=== PATIENT | female | born 1945 | race Caucasian/White ===

== ENCOUNTER 2022-04-08 16:58 | Emergency (ER) | payer MEDICARE, OTHER ==
[2022-04-08] MEDS ORDERED: PROTONIX 40 MG IV IV ONE (17:16)
[2022-04-08] MEDS ORDERED: TORAdol 30 mg Injection IV ONE (17:16)
[2022-04-08] MEDS ORDERED: Zofran 4 MG/2 ML VIAL IV ONE (17:16)
[2022-04-08] MEDS ORDERED: Sodium Chloride 0.9% 1000 ML 1,000 ML IV STA (17:16)
[2022-04-08] MEDS ORDERED: NORCO 5/325 MG PO ONE (17:38)
[2022-04-08] MEDS ORDERED: NORCO 5/325 MG ONE (17:42)
[2022-04-08] MEDS ORDERED: Lidoderm Patch 5% TOP ONE (17:57)
--- NOTE | 2022-04-08 17:57 | ERPHSYRPT ---
- History of Present Illness Source: patient Exam Limitations: no limitations Patient Subjective Stated Complaint: Lower back pain Triage Nursing Assessment: Patient brougth back to ED per w/c and transferred self to bed. Patient A+O X3. Patient's skin pink, warm and dry. Patient has a back injury that Dr. Mallory is following patient. Patient had recent MRI on 03/18/2022 and has been referred to [facility]. Patient is out of pain medication and called Dr. Mallory's office regarding her pain and was told to come to ED for pain relief. Patient complains of lower back pain 06/29. Timing/Duration: today Severity: moderate Modifying Factors: Improves With: medication, other Associated Symptoms: denies symptoms Hx Influenza Vaccination/Date Given: Yes Hx Pneumococcal Vaccination/Date Given: Yes Immunizations Up to Date: Yes <ANDREY HAYDEN - Last Filed: 04/08/22 18:39> <GUY AVERY - Last Filed: 04/08/22 19:29> - History of Present Illness Time Seen by Provider: 04/08/22 17:00 Physician History: Patient here with acute on chronic pain. Patient recent MRI 2 weeks ago. Patient states that she had a fall last week. She has not been evaluated for this fall yet. She was taking home tramadol. She now has pain over her lower back. I was able to review the MRI in our system. No other problems peeing, pooping, signs or symptoms of saddle anesthesia. 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 - Vaccination Dates Date of 2cond Vaccination (if applicable): na <ANDREY HAYDEN - Last Filed: 04/08/22 18:39> - Review of Systems Constitutional: No Fever, No Chills Eyes: No Symptoms Ears, Nose, & Throat: No Symptoms Respiratory: No Cough, No Dyspnea Cardiac: No Chest Pain, No Edema, No Syncope Abdominal/Gastrointestinal: No Abdominal Pain, No Nausea, No Vomiting, No Diarrhea Genitourinary Symptoms: No Dysuria Musculoskeletal: Back Pain, No Neck Pain Skin: No Rash Neurological: No Dizziness, No Focal Weakness, No Sensory Changes Psychological: No Symptoms Endocrine: No Symptoms All Other Systems: Reviewed and Negative <ANDREY HAYDEN - Last Filed: 04/08/22 18:39> - Past Medical History Neurological History: Stroke Cardiac History: Coronary Artery Disease, High Cholesterol, Hypertension Respiratory History: No Pertinent History Endocrine Medical History: No Pertinent History Musculoskeletal History: Arthritis Other Medical History: R ankle fx x3. 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 Carotid - Social History Smoking Status: Current every day smoker How long have you smoked: years Exposure to second hand smoke: No Drug Use: none Patient Lives Alone: Yes <ANDREY HAYDEN - Last Filed: 04/08/22 18:39> - Physical Exam General Appearance: no apparent distress, alert Eye Exam: PERRL/EOMI, eyes nml inspection Ears, Nose, Throat Exam: normal ENT inspection, TMs normal, pharynx normal, moist mucous membranes Neck Exam: normal inspection, non-tender, supple, full range of motion Respiratory Exam: normal breath sounds, lungs clear, No respiratory distress Cardiovascular Exam: regular rate/rhythm, normal heart sounds, normal peripheral pulses Gastrointestinal/Abdomen Exam: soft, normal bowel sounds, No tenderness, No mass Back Exam: normal inspection, normal range of motion, No CVA tenderness, No vertebral tenderness Extremity Exam: normal inspection, normal range of motion, pelvis stable Neurologic Exam: alert, oriented x 3, cooperative, normal mood/affect, nml cerebellar function, nml station & gait, sensation nml, No motor deficits Skin Exam: normal color, warm, dry, No rash Lymphatic Exam: No adenopathy SpO2 Interpretation: normal SpO2: 96 <ANDREY HAYDEN - Last Filed: 04/08/22 18:39> - Nursing Vital Signs Nursing Vital Signs: Initial Vital Signs Temperature 98.4 F 04/08/22 17:16 Pulse Rate 99 H 04/08/22 17:16 Respiratory Rate 18 04/08/22 17:16 Blood Pressure 177/99 04/08/22 17:16 O2 Sat by Pulse Oximetry 96 04/08/22 17:16 Pain Scale Pain Intensity 0 - Physical Exam Comments: 04/08/22 17:56 Midline L-spine tenderness. No T-spine tenderness no C-spine tenderness. No step-offs no deformities. Normal neurological exam. No saddle anesthesia on physical exam. Motor: There is no pronator drift of out-stretched arms. Muscle bulk and tone are normal. Strength is full bilaterally. Reflexes: Reflexes are 2+ and symmetric at the biceps, triceps, knees, and ankles. Plantar responses are flexor. Sensory: Light touch sense are intact in bilateral upper and lower extremities. There is no sign of neglect. Coordination: Rapid alternating movements are intact. There is no dysmetria on [id number] and [id number]. There are no abnormal or extraneous movements. Romberg is absent. Gait/Stance: Posture is normal. (ANDREY HAYDEN) - Course Nursing assessment & vital signs reviewed: Yes <ANDREY HAYDEN - Last Filed: 04/08/22 18:39> - CT Exams Lumbar Spine CT Interpretation: Negative, Tele-radiologist Report (osteopenia, L4-S1 degenerative disc disease, minimal grade 1 L4 anterolisthesis, and T11/T12 Schmorl nodes similar in appearance to recent MRI lumbar spine; incidental AAA with aortobiliac stent grafts and incompletely visualized right lung base calcified pleural plaquing; remain CT lumbar negative) <GUY AVERY - Last Filed: 04/08/22 19:29> Ordered Tests: Active Orders 24 hr Category Date Time Status NPO (ED) STAT Care 04/08/22 17:16 Completed LUMBAR SPINE W/O [CT] Stat Exams 04/08/22 17:41 Completed Medication Summary Discontinued Medications Generic Name Dose Route Start Last Admin Trade Name Freq PRN Reason Stop Dose Admin Hydrocodone Bitart/Acetaminophen 1 tab 04/08/22 17:38 04/08/22 17:42 Hydrocodone/Apap 5/325 1 Tab Tablet PO 04/08/22 17:39 1 tab STAT ONE Administration Hydrocodone Bitart/Acetaminophen Confirm 04/08/22 17:42 Hydrocodone/Apap 5/325 1 Tab Tablet Administered 04/08/22 17:43 Dose 1 tab .ROUTE .STK-MED ONE Sodium Chloride 1,000 mls @ 999 mls/hr 04/08/22 17:16 04/08/22 17:41 Sodium Chloride 0.9% 1000 Ml IV 04/08/22 18:16 Not Given .Q1H1M STA Ketorolac Tromethamine 30 mg 04/08/22 17:16 04/08/22 17:41 Ketorolac Tromethamine 30 Mg/Ml Inj IV 04/08/22 17:17 Not Given STAT ONE Lidocaine 1 patch 04/08/22 17:57 04/08/22 18:22 Lidocaine Hcl 1 Patch Patch TOP 04/08/22 17:58 1 patch ONCE ONE Administration Ondansetron HCl 4 mg 04/08/22 17:16 04/08/22 17:41 Ondansetron Hcl 4 Mg/2 Ml Vial IV 04/08/22 17:17 Not Given STAT ONE Pantoprazole Sodium 40 mg 04/08/22 17:16 04/08/22 17:41 Pantoprazole 40 Mg Vial IV 04/08/22 17:17 Not Given STAT ONE - Progress Progress: improved <ANDREY HAYDEN - Last Filed: 04/08/22 18:39> - Progress Counseled pt/family regarding: diagnosis, need for follow-up, rad results <GUY AVERY - Last Filed: 04/08/22 19:29> - Progress Progress Note: 04/08/22 17:56 Patient had a fall with some midline back pain. We will obtain a CT scan of her L-spine. I was able to review the MRI from 03/18/2022. Plan to give oral Canmer here. 04/08/22 18:41 CT still pending at this point in time. Plan for transfer to Dr. Avery. Patient is feeling improved. Pain medication to go home with. Patient may return here sooner for any new or changing symptoms. Otherwise Dr. Avery follow-up on imaging and most likely home. (ANDREY HAYDEN) 04/08/22 19:[address] scan for any acute fractures or acute abnormalities and reviewed the patient the results. Patient has no focal neurologic deficits in the lower extremities bilaterally (GUY AVERY) - Departure Critical Care Time: No <ANDREY HAYDEN - Last Filed: 04/08/22 18:39> <GUY AVERY - Last Filed: 04/08/22 19:29> - Departure Clinical Impression: Back pain, Fall Condition: Stable Referrals: JOHN BRITT [Primary Care Provider] - Follow up/PCP as directed Prescriptions: Cyclobenzaprine HCl 10 mg [Flexeril 10 MG] 10 mg PO TID #12 tablet Lidocaine [Lidocaine Pain Relief] 1 each TP DAILY 7 Days #7 patch
--- NOTE | 2022-04-08 19:11 | XRAY ---
Indication: Low back pain radiating right hip following fall 1 week ago. Multiple contiguous axial images obtained through the lumbar spine. Sagittal and coronal reformatted images obtained. Comparison: None. There is a MRI lumbar spine March 18, 2022. Osseous structures demineralized. Axial images demonstrates mild broad-based disc bulge at L4-S1 levels and L5-S1 degenerative vacuum disc phenomena. No large disc herniation or spinal canal stenosis. Facets are symmetric with moderate L4-L5 degenerative facet hypertrophy. Sagittal and coronal reformatted images demonstrates normal lumbar lordosis with 6 mm anterolisthesis of L4 on L5 and L5-S1 disc space loss. Superior endplate T11/T12 demonstrates small Schmorl node. No acute compression fracture. Visualized noncontrasted soft tissues demonstrates distal AAA with aortobiiliac stent grafts and incompletely visualized right lung base calcified pleural plaquing. Impression: 1. Osteopenia, L4-S1 degenerative disc disease, minimal grade 1 L4 anterolisthesis, and T11/T12 Schmorl nodes similar in appearance to recent MRI lumbar spine. 2. Incidental distal AAA with aortobiiliac stent grafts and incompletely visualized right lung base calcified pleural plaquing. 3. Remaining CT lumbar spine without contrast exam is negative.
[2022-04-08 19:14] VITALS: O2SAT 95
[2022-04-08 19:47] VITALS: BP 119/79; PULSE 84
== END 2022-04-08 19:47 | disposition home or self-care (01) ==
LOC: ED 16:58
DX: M54.50 Low back pain, unspecified (principal); W19.XXXA Unspecified fall, initial encounter; E78.5 Hyperlipidemia, unspecified; I10 Essential (primary) hypertension; Z72.0 Tobacco use; Z79.891 Long term (current) use of opiate analgesic
CPT/HCPCS: 72131; 99283; A9270-GY

== ENCOUNTER 2023-05-05 17:47 | Emergency (ER) | payer MEDICARE, OTHER ==
[2023-05-05 18:45] VITALS: TEMP 98; O2SAT 97
[2023-05-05 20:35] VITALS: RESP 18
--- NOTE | 2023-05-05 20:35 | ERPHSYRPT ---
- History of Present Illness Time Seen by Provider: 05/05/23 20:00 Source: patient, family Exam Limitations: no limitations Patient Subjective Stated Complaint: Patient c/o pain and swelling to right thumb. She states it started about 2 weeks ago. She went to the [facility] on Monday and was told it was gout and started on indomethacin. The pain and swelling have continued to increase. Triage Nursing Assessment: Patient ambulated back to ER. She is alert and oriented. NO SOB. Patient right thumb is red, warm, swollen, tight. Area is tender to touch. Physician History: This is a 77-year-old white female patient has a history of hyperlipidemia, hypertension and is a taking Plavix. Patient was diagnosed with gout in her right thumb. This was diagnosed on 05/01/2023 through the urgent care clinic. Patient was found to have an elevated uric acid level. I reviewed that laboratory data. In addition I reviewed the x-ray of the right hand that was performed on 05/01/2023. There are degenerative changes present without evidence of acute fracture or dislocation. Since that diagnosis, the patient has been on indomethacin without improvement. In fact there is increased swelling redness and tenderness. Occurred: other (Present for 2 weeks) Method of Injury: other Quality: constant (Injury), aching Severity of Pain-Max: mild (To moderate) Severity of Pain-Current: mild (To moderate) Extremities Pain Location: thumb: right Modifying Factors: Improves With: movement Associated Symptoms: none, No fever Allergies/Adverse Reactions: amlodipine Allergy (Mild, Verified 05/05/23 18:27) Home Medications: Aspirin 81 gm Chew [Baby Aspirin 81 mg Chew] 1 tab PO DAILY 05/05/23 [History] Celecoxib 100 mg [celeBREX 100 MG] 1 cap PO BID 05/05/23 [History] Clopidogrel Bisulfate [PLAVIX Tablet] 1 tab PO DAILY 05/05/23 [History] Famotidine 20 mg [Pepcid 20 MG] 1 tab PO DAILY 05/05/23 [History] Indomethacin 25 mg [Indocin 25 MG] 50 mg PO TID 05/05/23 [History] Metoprolol Succinate 50 mg [Toprol Xl 50 MG] 0.5 tab PO DAILY 05/05/23 [History] Simvastatin [Zocor] 1 tab PO HS 05/05/23 [History] Spironolactone 25 mg [Aldactone 25 MG] 1 tab PO DAILY 05/05/23 [History] Hx Tetanus, Diphtheria Vaccination/Date Given: Yes Hx Influenza Vaccination/Date Given: Yes Hx Pneumococcal Vaccination/Date Given: Yes Immunizations Up to Date: Yes Travel Risk - International Travel Have you traveled outside of the country in past 3 weeks: No - Coronavirus Screening Are you exhibiting any of the following symptoms?: No Close contact with a COVID-19 positive Pt in past 14-21 Days: No - Vaccine Status Have you recieved a Covid-19 vaccination: Yes 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 - Vaccination Dates Date of 2cond Vaccination (if applicable): na - Review of Systems Constitutional: No Symptoms Eyes: No Symptoms Ears, Nose, & Throat: No Symptoms Respiratory: No Symptoms Cardiac: No Symptoms Abdominal/Gastrointestinal: No Symptoms Genitourinary Symptoms: No Symptoms Musculoskeletal: Other (Right thumb swelling and tenderness) Skin: Cellulitis (Right thumb) Neurological: No Symptoms Psychological: No Symptoms Endocrine: No Symptoms Hematologic/Lymphatic: No Symptoms Immunological/Allergic: No Symptoms All Other Systems: Reviewed and Negative - Past Medical History Pertinent Past Medical History: Yes Neurological History: Stroke ENT History: Cataracts Cardiac History: High Cholesterol, Hypertension Respiratory History: Other Endocrine Medical History: No Pertinent History Musculoskeletal History: Osteoarthritis GI Medical History: GERD Other Medical History: SOB, SMOKER, OPEN HEART SURGERY. - Past Surgical History Past Surgical History: Yes Neuro Surgical History: No Pertinent History Cardiac: CABG, Cardiac Catheterization, Other Respiratory: No Pertinent History Gastrointestinal: No Pertinent History Genitourinary: No Pertinent History Musculoskeletal: No Pertinent History Female Surgical History: No Pertinent History Other Surgical History: Triple A repair. Carotid - Social History Smoking Status: Current every day smoker How long have you smoked: years Exposure to second hand smoke: No Drug Use: none Patient Lives Alone: Yes - Nursing Vital Signs Nursing Vital Signs: Initial Vital Signs Temperature 98 F 05/05/23 18:32 Pulse Rate 86 05/05/23 18:32 Respiratory Rate 17 05/05/23 18:32 Blood Pressure 168/81 05/05/23 18:32 O2 Sat by Pulse Oximetry 97 05/05/23 18:32 Pain Scale Pain Intensity 10 - Physical Exam General Appearance: no apparent distress, alert, anxiety, obese Eyes, Ears, Nose, Throat Exam: normal ENT inspection, moist mucous membranes Neck Exam: normal inspection, non-tender, supple, full range of motion Cardiovascular/Respiratory Exam: chest non-tender, no respiratory distress Abdominal Exam: non-tender Back Exam: normal inspection, normal range of motion, No CVA tenderness, No vertebral tenderness Shoulder Exam: normal inspection, non-tender, no evidence of injury, normal ROM Elbow/Forearm Exam: normal inspection, non-tender, no evidence of injury, normal ROM Wrist Exam: normal inspection, non-tender, no evidence of injury, normal ROM Hand Exam: infection (Right thumb. Question ballotable abscess right thumb), soft tissue tenderness, swelling (Right thumb thumb) Neuro/Tendon Exam: normal sensation, normal motor functions, normal tendon functions, responds to pain, no evidence tendon injury Mental Status Exam: alert, oriented x 3, cooperative Skin Exam: other (See above) SpO2 Interpretation: normal SpO2: 97 O2 Delivery: Room Air Procedures - Incision and Drainage Time of Procedure: 20:45 Site: Right thumb Anesthesia: 1% Lidocaine cc's of anesthesia: 1 Blade Size: 11 I & D Procedure: betadine prep Results: moderate amount pus Progress: Patient tolerated procedure well. - Course Nursing assessment & vital signs reviewed: Yes Ordered Tests: Active Orders 24 hr Category Date Time Status CULTURE,WOUND Stat Lab 05/05/23 21:04 Ordered Medication Summary Discontinued Medications Generic Name Dose Route Start Last Admin Trade Name Ari PRN Reason Stop Dose Admin Ceftriaxone Sodium 1,000 mg 05/05/23 21:04 Ceftriaxone Sodium 1000 Mg Inj Vial IM 05/05/23 21:05 STAT ONE Oxycodone/Acetaminophen 2 tab 05/05/23 20:38 05/05/23 21:04 Oxycodone Hcl/Apap 5 Mg/325 Mg Tablet PO 05/05/23 20:39 2 tab STAT STA Administration Oxycodone/Acetaminophen Confirm 05/05/23 20:51 Oxycodone Hcl/Apap 5 Mg/325 Mg Tablet Administered 05/05/23 20:52 Dose 2 tab .ROUTE .STK-MED ONE Trimethoprim/Sulfamethoxazole 1 tab 05/05/23 21:04 Smz/Tmp Ds Tablet 1 Tablet PO 05/05/23 21:05 STAT ONE - Progress Progress: improved, pain not gone completely Progress Note: 05/05/23 20:35 Patient's medical issue is 1 of low complexity. Level complexity in the workup performed is based on review of the patient's past medical history, review the patient's medication list, review of patient drug allergy list, history of present illness and physical findings on examination. The workup in this patient includes prepping the site with incision and drainage of the abscess that is present and fluid will be sent for culture and sensitivity. We will then inject the patient with intramuscular Rocephin and provide her with a oral dose of Bactrim DS. We will then have the patient return in 24 hours for reassessment. Counseled pt/family regarding: diagnosis, need for follow-up Medical Desision Making - Independent Historian Additional History obtained from: Family - Diagnostic Testing Diagnostic test were ordered, analyzed, and reviewed by me: No - Risk of complications The pt has a mod risk of morbidity or mortality based on: Need for prescription drug management - Departure Departure Disposition: Home Clinical Impression: Abscess of right thumb Condition: Stable Critical Care Time: No Referrals: JOHN BRITT [Primary Care Provider] - Follow up/PCP as directed Additional Instructions: Keep the current bandage on until tomorrow morning. May then remove the bandage and soak/wash in warm soapy water or Epsom salts twice a day. Replace the dressing with a new 1 after each washing and soaking. Take your medication as prescribed. Return to the emergency department approximately noon tomorrow, 05/06/2023 for reevaluation. Prescriptions: Oxycodone HCl/Acetaminophen [Percocet 5-325 mg Tablet] 1 each PO Q8H PRN PRN #6 tablet MDD 3 PRN Reason: Moderate To Severe Pain Smz/Tmp Ds Tablet [Bactrim Ds Tablet] 1 udtab PO BID #14 tablet
[2023-05-05] MEDS ORDERED: PERCOCET TABLET 5/325MG ONE (20:51)
[2023-05-05] MEDS: PERCOCET TABLET 5/325MG PO STA (21:04)
[2023-05-05] MEDS ORDERED: BACTRIM DS TABLET PO ONE (21:14)
[2023-05-05] MEDS ORDERED: Rocephin 1000 MG INJ ONE (21:14)
[2023-05-05] MEDS ORDERED: XYLOCAINE 1% HCL 20 ML MDV ONE (21:18)
[2023-05-05] MEDS: Rocephin 1000 MG INJ IM ONE (21:23)
[2023-05-05] MEDS: BACTRIM DS TABLET PO ONE (21:24)
[2023-05-05 21:40] VITALS: BP 142/67; PULSE 80
== END 2023-05-05 21:48 | disposition home or self-care (01) ==
LOC: ED 17:47
DX: L02.511 Cutaneous abscess of right hand (principal); M79.644 Pain in right finger(s); E78.5 Hyperlipidemia, unspecified; I10 Essential (primary) hypertension; Z79.891 Long term (current) use of opiate analgesic; Z79.02 Long term (current) use of antithrombotics/antiplatelets; Z79.899 Other long term (current) drug therapy; Z72.0 Tobacco use
CPT/HCPCS: 26010; 87070; 96372; 99283; J0696; A9270-GY

== ENCOUNTER 2023-05-06 10:58 | Observation (INO) | payer MEDICARE, OTHER ==
--- NOTE | 2023-05-06 11:38 | ERPHSYRPT ---
- History of Present Illness Time Seen by Provider: 05/06/23 11:25 Source: family (Patient here for evaluation of altered mental status after taking Percocet her family states that she did not respond to the phone call and when her son arrived at the house she was altered, he said that she was alert to person but not to place or time and could not recall certain events) Exam Limitations: no limitations Patient Subjective Stated Complaint: pt here for recheck on finger that was I/D last nigth and a confusion that started sometime today, family was unable to get pt to answer phone and when they checked on her she was not acting her normal Triage Nursing Assessment: pt alert, does not know why she is here and does not know date but does know her BD and where she is, has redness and swelling to right thumb, dryed drainage on dressing Timing/Duration: today, yesterday Severity: mild Modifying Factors: Improves With: nothing Allergies/Adverse Reactions: amlodipine Allergy (Mild, Verified 05/05/23 18:27) Home Medications: Aspirin 81 gm Chew [Baby Aspirin 81 mg Chew] 1 tab PO DAILY 05/05/23 [History] Celecoxib 100 mg [celeBREX 100 MG] 1 cap PO BID 05/05/23 [History] Clopidogrel Bisulfate [PLAVIX Tablet] 1 tab PO DAILY 05/05/23 [History] Famotidine 20 mg [Pepcid 20 MG] 1 tab PO DAILY 05/05/23 [History] Indomethacin 25 mg [Indocin 25 MG] 50 mg PO TID 05/05/23 [History] Metoprolol Succinate 50 mg [Toprol Xl 50 MG] 0.5 tab PO DAILY 05/05/23 [History] Simvastatin [Zocor] 1 tab PO HS 05/05/23 [History] Spironolactone 25 mg [Aldactone 25 MG] 1 tab PO DAILY 05/05/23 [History] Hx Tetanus, Diphtheria Vaccination/Date Given: Yes Hx Influenza Vaccination/Date Given: Yes Hx Pneumococcal Vaccination/Date Given: Yes Immunizations Up to Date: Yes Travel Risk - International Travel Have you traveled outside of the country in past 3 weeks: No - Coronavirus Screening Are you exhibiting any of the following symptoms?: No Close contact with a COVID-19 positive Pt in past 14-21 Days: No - Vaccine Status Have you recieved a Covid-19 vaccination: Yes [employer]: Moderna - Vaccination Dates Date of 2cond Vaccination (if applicable): na - Review of Systems Eyes: No Symptoms Ears, Nose, & Throat: No Symptoms Respiratory: No Symptoms Cardiac: No Symptoms Abdominal/Gastrointestinal: No Symptoms Genitourinary Symptoms: Frequency Musculoskeletal: No Symptoms Skin: No Symptoms Neurological: Other (Altered mental status per family) Endocrine: No Symptoms Hematologic/Lymphatic: No Symptoms Immunological/Allergic: No Symptoms - Past Medical History Pertinent Past Medical History: Yes Neurological History: No Pertinent History, Stroke ENT History: Cataracts Cardiac History: High Cholesterol, Hypertension Respiratory History: Other Endocrine Medical History: No Pertinent History Musculoskeletal History: Osteoarthritis GI Medical History: GERD Other Medical History: SOB, SMOKER, OPEN HEART SURGERY. - Past Surgical History Past Surgical History: Yes Neuro Surgical History: No Pertinent History Cardiac: CABG, Cardiac Catheterization, Other Respiratory: No Pertinent History Gastrointestinal: No Pertinent History Genitourinary: No Pertinent History Musculoskeletal: No Pertinent History Female Surgical History: No Pertinent History Other Surgical History: Triple A repair. Carotid - Social History Smoking Status: Current every day smoker How long have you smoked: years Exposure to second hand smoke: No Drug Use: none Patient Lives Alone: Yes - Nursing Vital Signs Nursing Vital Signs: Initial Vital Signs Temperature 98.2 F 05/06/23 11:07 Pulse Rate 107 H 05/06/23 11:07 Respiratory Rate 16 05/06/23 11:07 Blood Pressure 148/72 05/06/23 11:07 O2 Sat by Pulse Oximetry 97 05/06/23 11:07 Pain Scale Pain Intensity 0 - Physical Exam General Appearance: no apparent distress Eye Exam: PERRL/EOMI Ears, Nose, Throat Exam: normal ENT inspection Neck Exam: normal inspection Respiratory Exam: normal breath sounds Cardiovascular Exam: regular rate/rhythm Gastrointestinal/Abdomen Exam: soft, normal bowel sounds Skin Exam: normal color SpO2: 97 - CT Exams Head CT Interpretation: Tele-radiologist Report, Other Ordered Tests: Active Orders 24 hr Category Date Time Status IV Insertion STAT Care 05/06/23 11:34 Active cath [Cath for Specimen-Straight] STAT Care 05/06/23 11:35 Active HEAD WITHOUT CONTRAST [CT] Stat Exams 05/06/23 11:27 Completed CBC W DIFF Stat Lab 05/06/23 11:30 Completed CMP Stat Lab 05/06/23 11:30 Completed CULTURE,URINE Stat Lab 05/06/23 11:35 Received UA W/RFX UR CULTURE Stat Lab 05/06/23 11:34 Completed Lab/Rad Data: Laboratory Result Diagrams 05/06/23 11:30 05/06/23 11:30 Laboratory Results 05/06/23 05/06/23 05/06/23 Range/Units 11:34 11:30 11:30 WBC 10.5 (4.0-10.5) x10^3/uL RBC 3.92 L (4.1-5.4) x10^6/uL Hgb 11.9 L (12.0-16.0) g/dL Hct 36.0 (35-47) % MCV 91.8 (78-100) fL MCH 30.4 (26-32) pg MCHC 33.1 (32-36) g/dL RDW 12.6 (11.5-14.0) % Plt Count 308 (150-450) x10^3/uL MPV 9.8 (7.5-11.0) fL Gran % 81.8 H (36.0-66.0) % Immature Gran % (Auto) 0.6 H (0.00-0.4) % Nucleat RBC Rel Count 0.0 (0.00-0.1) % Eos # (Auto) 0.19 (0-0.5) x10^3/uL Immature Gran # (Auto) 0.06 H (0.00-0.03) x10^3u/L Absolute Lymphs (auto) 0.93 L (1.0-4.6) x10^3/uL Absolute Monos (auto) 0.67 (0.0-1.3) x10^3/uL Absolute Nucleated RBC 0.00 (0.00-0.01) x10^3u/L Lymphocytes % 8.9 L (24.0-44.0) % Monocytes % 6.4 (0.0-12.0) % Eosinophils % 1.8 (0.00-5.0) % Basophils % 0.5 (0.0-0.4) % Absolute Granulocytes 8.58 H (1.4-6.9) x10^3/uL Basophils # 0.05 (0-0.4) x10^3/uL Sodium 135 (135-145) mmol/L Potassium 5.3 H (3.5-5.1) mmol/L Chloride 102 (98-107) mmol/L Carbon Dioxide 21 L (22-30) mmol/L Anion Gap 16.9 H (5-15) MEQ/L BUN 24 H (7-17) mg/dL Creatinine 1.67 H (0.52-1.04) mg/dL Estimated GFR 31.0 ML/MIN Glucose 117 H (74-106) mg/dL Calcium 8.7 (8.4-10.2) mg/dL Total Bilirubin 0.50 (0.2-1.3) mg/dL AST 20 (14-36) U/L ALT 10 (0-35) U/L Alkaline Phosphatase 47 (38-126) U/L Serum Total Protein 7.4 (6.3-8.2) g/dL Albumin 4.1 (3.5-5.0) g/dL Urine Color Yellow (Yellow) Urine Appearance Clear (Clear) Urine pH 6.0 (4.6-8.0) Ur Specific [place] 1.015 (1.005-1.030) Urine Protein Negative (Negative) Urine Glucose (UA) Negative (Negative) mg/dL Urine Ketones Negative (Negative) Urine Blood Small A (Negative) Urine Nitrite Negative (Negative) Urine Bilirubin Negative (Negative) Urine Urobilinogen 0.2 (0.2) mg/dL Ur Leukocyte Esterase Small A (Negative) U Hyaline Cast (Auto) NONE SEEN (0-2) /LPF Urine Microscopic RBC 0-2 (0-5) /HPF Urine Microscopic WBC 6-10 A (0-5) /HPF Ur Epithelial Cells Rare (None Seen) /HPF Urine Bacteria Few A (None Seen) /HPF Urine Culture Reflexed ORDERED SEPARATELY (NO) - Progress Progress: improved Progress Note: 05/06/23 13:55 IMPRESSION: 1. No acute intracerebral or extra axial hematoma. 2. Confluent hypoattenuation seen bilaterally in periventricular white matter and centrum semiovale representing microvascular ischemic changes, however the the possibility of acute ischemic infarction can not be entirely excluded, would recommend MRI brain including DWI/ADC . 3. An area of encephalomalacia seen in left parieto occipital region likely due to prior ischemic event. 4. Age-appropriate brain involutional changes 5. No obvious space occupying lesions seen. Patient and her family was updated with the results of the head CT and informed of the need for IV fluids and antibiotics. They are agreeable to her getting IV fluid and IV Rocephin she will then be discharged home to continue the course of treatment as recommended by Dr. Bean and follow-up with her primary care bal mauricio on Monday Medical Desision Making - Discussion of managment Reviewed:: Test results Agreed on:: need for follow-up - Diagnostic Testing Diagnostic test were ordered, analyzed, and reviewed by me: Yes - Departure Clinical Impression: Altered mental status, unspecified, Dehydration Condition: Stable Critical Care Time: No Referrals: JOHN BRITT [Primary Care Provider] - Follow up/PCP as directed
[2023-05-06 11:42] LABS: Absolute Neutrophil Ct (ANC) 8.58 x10^3/uL (1.4-6.9); BASOPHIL % 0.5 % (0.0-0.4); Basophil (Absolute #) 0.05 x10^3/uL (0-0.4); Eosinophil % 1.8 % (0.00-5.0); Eosinophil (Absolute #) 0.19 x10^3/uL (0-0.5); Hemoglobin 11.9 g/dL (12.0-16.0); IMMATURE GRAN # 0.06 x10^3u/L (0.00-0.03); IMMATURE GRAN % 0.6 % (0.00-0.4); Lymphocyte (Absolute #) 0.93 x10^3/uL (1.0-4.6); Lymphocytes % 8.9 % (24.0-44.0); Mean Cell Volume 91.8 fL (78-100); Mean Corpuscular Hemoglobin 30.4 pg (26-32); Mean Corpuscular Hgb Concent. 33.1 g/dL (32-36); Mean Platelet Volume 9.8 fL (7.5-11.0); Monocyte (Absolute #) 0.67 x10^3/uL (0.0-1.3); Monocytes % 6.4 % (0.0-12.0); Neutrophil % 81.8 % (36.0-66.0); Platelet Count 308 x10^3/uL (150-450); Red Blood Count 3.92 x10^6/uL (4.1-5.4); Red Cell Distribution Width 12.6 % (11.5-14.0); White Blood Count 10.5 x10^3/uL (4.0-10.5)
[2023-05-06 11:53] LABS: ALBUMIN 4.1 g/dL (3.5-5.0); ANION GAP 16.9 MEQ/L (5-15); BILIRUBIN,TOTAL 0.5 mg/dL (0.2-1.3); Calcium 8.7 mg/dL (8.4-10.2); Creatinine 1 1.67 mg/dL (0.52-1.04); Potassium 5.3 mmol/L (3.5-5.1); Total Protein 7.4 g/dL (6.3-8.2)
[2023-05-06 11:55] LABS: Appearance Clear (Clear); Bacteria Few /HPF (None Seen); Bilirubin Negative (Negative); Blood Small (Negative); Epithelial Cells Rare /HPF (None Seen); Glucose, Urine Negative (Negative); Hyaline Casts NONE SEEN /LPF (0-2); Ketones Negative (Negative); Leukocyte Esterase Small (Negative); Nitrite Negative (Negative); Protein,Urine Dip Negative (Negative); RBC 0-2 /HPF (0-5); Specific Gravity 1.015 (1.005-1.030); Urobilinogen 0.2 mg/dL (0.2)
[2023-05-06 11:56] LABS: ADD URINE CULTURE? ORDERED SEPARATELY (NO)
--- NOTE | 2023-05-06 12:58 | XRAY ---
CLINICAL HISTORY: altered mental status TECHNIQUE: Axial plain CT scan of the brain was performed from the skull base to the high parietal region. CTDI: 53.92, DLP: 1031.40, Motion artifacts seen obscuring fine details especially in bone windows COMPARISON: None. FINDINGS: No intracerebral or extra axial hematoma. Confluent hypoattenuation seen bilaterally in periventricular white matter and centrum semiovale representing microvascular ischemic changes. An area of encephalomalacia seen in left parieto occipital region likely due to prior ischemic event. Age-appropriate brain involutional changes are seen as evident by dilated intra-And extra Axial CSF spaces. Asymmetric dilatation of lateral ventricles. No obvious space occupying lesions seen. No midline shifts or deformity. Normal CT appearance of the posterior fossa structures namely the cerebellar hemispheres, brainstem and cerebellar peduncles. No definite calvarium fractures. Mild mucosal thickening is seen in both maxillary sinuses. Partial opacification of both mastoid air cells. IMPRESSION: 1. No acute intracerebral or extra axial hematoma. 2. Confluent hypoattenuation seen bilaterally in periventricular white matter and centrum semiovale representing microvascular ischemic changes, however the the possibility of acute ischemic infarction can not be entirely excluded, would recommend MRI brain including DWI/ADC . 3. An area of encephalomalacia seen in left parieto occipital region likely due to prior ischemic event. 4. Age-appropriate brain involutional changes 5. No obvious space occupying lesions seen. Electronically Signed by: Letha Hugo MD. (05/06/2023 12:53:41 EDT)
[2023-05-06] MEDS ORDERED: Sodium Chloride 0.9% 1000 ML 1,000 ML ONE (14:01)
[2023-05-06] MEDS ORDERED: ROCEPHIN 1 GM / 100 ML NaCl 1 GM/100 ML IVPB IV ONE (14:01)
[2023-05-06] MEDS: Sodium Chloride 0.9% 1000 ML 1,000 ML IV SCH ×2 (14:06→18:52)
[2023-05-06] MEDS: ROCEPHIN 1 GM / 100 ML NaCl 1 GM/100 ML IVPB IV ONE (14:07)
--- NOTE | 2023-05-06 15:26 | PCM.HP ---
History of Present Illness - Chief Complaint Chief Complaint: WEAKNESS Date: 05/06/23 History of Present Illness: is a 77 year old female with PMHX of cataracts, hyperlipidemia, OA, GERD, smoker- daily, open heart surgery, triple-A repair, and heart cath. Family explaines that patient here for evaluation of altered mental status after taking Percocet. Her family states that she did not respond to the phone call and when her son arrived at the house she was altered. He said that she was alert to person but not to place or time and could not recall certain events. Pt states she is here for recheck on finger that was I/D last night and a confusion that started sometime today. She does have some redness and swelling to right thumb, with dried drainage on dressing. CT of brain shows: Medications & Allergies Home Medications: Home Medication List Aspirin 81 gm Chew [Baby Aspirin 81 mg Chew] 1 tab PO DAILY 05/05/23 [History Confirmed 05/06/23] Celecoxib 100 mg [celeBREX 100 MG] 1 cap PO BID 05/05/23 [History Confirmed 05/06/23] Clopidogrel Bisulfate [PLAVIX Tablet] 1 tab PO DAILY 05/05/23 [History Confirmed 05/06/23] Famotidine 20 mg [Pepcid 20 MG] 1 tab PO DAILY 05/05/23 [History Confirmed 05/06/23] Metoprolol Succinate 50 mg [Toprol Xl 50 MG] 0.5 tab PO DAILY 05/05/23 [History Confirmed 05/06/23] Oxycodone HCl/Acetaminophen [Percocet 5-325 mg Tablet] 1 each PO Q8H PRN PRN #6 tablet MDD 3 05/05/23 [Rx Confirmed 05/06/23] Simvastatin [Zocor] 1 tab PO HS 05/05/23 [History Confirmed 05/06/23] Smz/Tmp Ds Tablet [Bactrim Ds Tablet] 1 udtab PO BID #14 tablet 05/05/23 [ Rx Confirmed 05/06/23] Spironolactone 25 mg [Aldactone 25 MG] 1 tab PO DAILY 05/05/23 [History Confirmed 03/16/24] Allergies/Adverse Reactions: Allergies Allergy/AdvReac Type Severity Reaction Status Date / Time amlodipine Allergy Mild Verified 05/05/23 18:27 - Past Medical History Past Medical History: Yes Neurological History: Stroke ENT History: Cataracts Cardiac History: High Cholesterol, Hypertension Respiratory History: Other Endocrine Medical History: No Pertinent History Musculoskelatal History: Osteoarthritis GI Medical History: GERD History: No Pertinent History Pyscho-Social History: No Pertinent History Reproductive Disorders: No Pertinent History Comment: SOB, SMOKER, OPEN HEART SURGERY. - Past Surgical History Past Surgical History: Yes Neuro Surgical History: No Pertinent History Cardiac History: CABG, Cardiac Catheterization, Other Respiratory Surgery: No Pertinent History GI Surgical History: No Pertinent History Genitourinary Surgical Hx: No Pertinent History Musculskeletal Surgical Hx: No Pertinent History Female Surgical History: No Pertinent History Other Surgical History: Triple A repair. Carotid - Social History Smoking Status: Current every day smoker How long have you smoked: years Exposure to second hand smoke: No Alcohol: Rarely Drug Use: none - Physical Exam Vital Signs: Vital Signs - 24 hr Temp Pulse Resp BP BP Pulse Ox 05/06/23 14:51 99 F 86 16 140/63 98 05/06/23 14:20 91 H 12 96 05/06/23 14:10 92 H 15 97 05/06/23 14:07 95 05/06/23 14:02 97 05/06/23 13:30 95 H 25 H 115/63 05/06/23 13:01 93 H 15 146/78 95 05/06/23 11:07 98.2 F 107 H 16 148/72 97 Results - Labs Lab/Micro Results: Lab Results-Last 24 Hours 05/06/23 05/06/23 05/06/23 Range/Units 11:30 11:30 11:34 WBC 10.5 (4.0-10.5) x10^3/uL RBC 3.92 L (4.1-5.4) x10^6/uL Hgb 11.9 L (12.0-16.0) g/dL Hct 36.0 (35-47) % MCV 91.8 (78-100) fL MCH 30.4 (26-32) pg MCHC 33.1 (32-36) g/dL RDW 12.6 (11.5-14.0) % Plt Count 308 (150-450) x10^3/uL MPV 9.8 (7.5-11.0) fL Gran % 81.8 H (36.0-66.0) % Immature Gran % (Auto) 0.6 H (0.00-0.4) % Nucleat RBC Rel Count 0.0 (0.00-0.1) % Eos # (Auto) 0.19 (0-0.5) x10^3/uL Immature Gran # (Auto) 0.06 H (0.00-0.03) x10^3u/L Absolute Lymphs (auto) 0.93 L (1.0-4.6) x10^3/uL Absolute Monos (auto) 0.67 (0.0-1.3) x10^3/uL Absolute Nucleated RBC 0.00 (0.00-0.01) x10^3u/L Lymphocytes % 8.9 L (24.0-44.0) % Monocytes % 6.4 (0.0-12.0) % Eosinophils % 1.8 (0.00-5.0) % Basophils % 0.5 (0.0-0.4) % Absolute Granulocytes 8.58 H (1.4-6.9) x10^3/uL Basophils # 0.05 (0-0.4) x10^3/uL Sodium 135 (135-145) mmol/L Potassium 5.3 H (3.5-5.1) mmol/L Chloride 102 (98-107) mmol/L Carbon Dioxide 21 L (22-30) mmol/L Anion Gap 16.9 H (5-15) MEQ/L BUN 24 H (7-17) mg/dL Creatinine 1.67 H (0.52-1.04) mg/dL Estimated GFR 31.0 ML/MIN Glucose 117 H (74-106) mg/dL Calcium 8.7 (8.4-10.2) mg/dL Total Bilirubin 0.50 (0.2-1.3) mg/dL AST 20 (14-36) U/L ALT 10 (0-35) U/L Alkaline Phosphatase 47 (38-126) U/L Serum Total Protein 7.4 (6.3-8.2) g/dL Albumin 4.1 (3.5-5.0) g/dL Urine Color Yellow (Yellow) Urine Appearance Clear (Clear) Urine pH 6.0 (4.6-8.0) Ur Specific [place] 1.015 (1.005-1.030) Urine Protein Negative (Negative) Urine Glucose (UA) Negative (Negative) mg/dL Urine Ketones Negative (Negative) Urine Blood Small A (Negative) Urine Nitrite Negative (Negative) Urine Bilirubin Negative (Negative) Urine Urobilinogen 0.2 (0.2) mg/dL Ur Leukocyte Esterase Small A (Negative) U Hyaline Cast (Auto) NONE SEEN (0-2) /LPF Urine Microscopic RBC 0-2 (0-5) /HPF Urine Microscopic WBC 6-10 A (0-5) /HPF Ur Epithelial Cells Rare (None Seen) /HPF Urine Bacteria Few A (None Seen) /HPF Urine Culture Reflexed ORDERED SEPARATELY (NO) - Radiology Impressions Radiology Exams & Impressions: Radiology Procedures Category Date Time Status HEAD WITHOUT CONTRAST [CT] Stat Exams 05/06/23 11:27 Completed MRI BRAIN WITH CONTRAST [MRI] Routine Exams 05/08/23 14:45 Ordered Assessment/Plan (1) Altered mental status, unspecified Current Visit: Yes Status: Acute Assessment & Plan: - Pt admits to taking a percocet for thumb pain today- may be 2:2 this - CT brain: 05/06/23 IMPRESSION: 1. No acute intracerebral or extra axial hematoma. 2. Confluent hypoattenuation seen bilaterally in periventricular white matter and centrum semiovale representing microvascular ischemic changes, however the the possibility of acute ischemic infarction can not be entirely excluded, would recommend MRI brain including DWI/ADC . 3. An area of encephalomalacia seen in left parieto occipital region likely due to prior ischemic event. 4. Age-appropriate brain involutional changes 5. No obvious space occupying lesions seen. - Tele neuro consult - MRI Monday as we cannot do on the weekend - Had I& D yesterday in ER and sent home with antibiotocs and pain meds. After taking pain meds pt became confused. - Son felt like she was also somewhat confused when she came into ER yesterday. - CO2 monitor per RT - Narcan PRN Code(s): R41.82 - ALTERED MENTAL STATUS, UNSPECIFIED (2) Dehydration Current Visit: Yes Status: Acute Assessment & Plan: - IVF Code(s): E86.0 - DEHYDRATION (3) UTI (urinary tract infection) Current Visit: Yes Status: Acute Assessment & Plan: - ceftriaxone gave in ER - Will change to IV Ancef as pt also had an abcess of right thumb drained in ER yesterday. - UC pending Code(s): N39.0 - URINARY TRACT INFECTION, SITE NOT SPECIFIED (4) Acute on chronic renal failure Current Visit: Yes Status: Acute Assessment & Plan: - creat 1.67, BL 1.42 - gentle IVF d/t heart hx Code(s): N17.9 - ACUTE KIDNEY FAILURE, UNSPECIFIED; N18.9 - CHRONIC KIDNEY DISEASE, UNSPECIFIED (5) Hyperkalemia Current Visit: Yes Status: Acute Assessment & Plan: - K+ 5.3 - Hold spirolactone. - Recheck in AM. - Cont IVF Code(s): E87.5 - HYPERKALEMIA (6) HTN (hypertension) Current Visit: Yes Status: Chronic Assessment & Plan: - continue home meds - BP stable - tele - Monitor Code(s): I10 - ESSENTIAL (PRIMARY) HYPERTENSION (7) Smoker Current Visit: Yes Status: Acute Assessment & Plan: - advised cessation - nicotine patch Code(s): F17.200 - NICOTINE DEPENDENCE, UNSPECIFIED, UNCOMPLICATED (8) GERD (gastroesophageal reflux disease) Current Visit: Yes Status: Chronic Assessment & Plan: - Cont home med-Pepcid Code(s): K21.9 - GASTRO-ESOPHAGEAL REFLUX DISEASE WITHOUT ESOPHAGITIS (9) Abscess of right thumb Current Visit: No Status: Acute Assessment & Plan: - Had I& D yesterday in ER and sent home with antibiotocs and pain meds. After taking pain meds pt became confused. - Son felt like she was also somewhat confused when she came into ER yesterday. - increased pain- tylenol - Ice pack PRN - Elevate right arm/hand to heart level - Start Ancef - Wound culture done in ER yesterday no growth to date. - BC x2 ordered - TDAP ordered, as was not gave in ER yesterday with I&D and she is unsure if up to date. - Right hand XR 05/01/23: Comparison: None 3 view right hand demonstrates osteopenia, moderate/advanced 1st metacarpal multangular scaphoid degenerative changes, tiny lunate subcortical cysts, and radiocarpal joint space narrowing. No other bony, articular, or soft tissue abnormalities. Code(s): L02.511 - CUTANEOUS ABSCESS OF RIGHT HAND (10) Hyperlipidemia Current Visit: Yes Status: Chronic Assessment & Plan: - continue statin VTE: Plavix, SCD's PPI: Pepcid Next of KIN: SonArslan [phone] D/C plan: 1-2 days Code status: Full Code(s): E78.5 - HYPERLIPIDEMIA, UNSPECIFIED Telemedicine Encounter - Telemedicine Encounter Telemedicine Encounter: The entirety of this encounter was performed via Telemedicine"
[2023-05-06] MEDS ORDERED: Narcan 0.4 MG/ML IV PRN (16:28)
--- NOTE | 2023-05-06 19:44 | XRAY ---
CLINICAL HISTORY: crackles BLLL TECHNIQUE: X-ray of chest-AP portable view COMPARISON: None FINDINGS: Cardiac size cannot be accurately assessed in AP projection, however cardiac shadow appears within normal limits. Normal hilar shadows. Pulmonary infiltrates seen in the left lower lobe retrocardiac region Homogeneous opacification seen in the right lower zone with blurring of the right costophrenic angle probably suggesting right pleuro-parenchymal pathology. Mild prominent interstitium with ground-glass opacities noted in left mid and lower zones. Left costophrenic angle appears clear. Obliteration of both cardiophrenic regions representing fat pad Curvilinear aortic arch calcifications seen. Sternotomy sutures noted representing post CABG status. Degenerative changes seen in the visualized spine. Osteopenic bones. IMPRESSION: 1. Pulmonary infiltrates seen in the left lower lobe retrocardiac region.Follow-up is suggested 2. Homogeneous opacification seen in the right lower zone with blurring of the right costophrenic angle probably suggesting right pleuroparenchymal pathology. 3. Mild prominent interstitium with groundglass opacities noted in left mid and lower zones. 4. CT chest may be recommended for further evaluation if clinically warranted. Electronically Signed by: Letha Hugo MD. (05/06/2023 19:40:57 EDT)
[2023-05-06] MEDS ORDERED: ZOCOR 20MG ONE (21:14)
[2023-05-06] MEDS: Nicoderm CQ 21 MG TOP SCH (21:19)
[2023-05-06] MEDS: KEFZOL 1 GM/50 ML PREMIX** 1 GM/50 ML IVPB IV SCH (21:20)
[2023-05-06] MEDS: NON-FORMULARY ITEM (Simvastatin [Zocor] 40 MG Tablet) PO SCH (21:21)
[2023-05-06] MEDS: TENIVAC VIAL IM ONE (22:01)
[2023-05-07] MEDS: TYLENOL 325 MG PO PRN (03:22)
[2023-05-07 07:12] LABS: Hematocrit 34.4 % (35-47); Hemoglobin 11.1 g/dL (12.0-16.0); Mean Cell Volume 94.8 fL (78-100); Mean Corpuscular Hemoglobin 30.6 pg (26-32); Mean Corpuscular Hgb Concent. 32.3 g/dL (32-36); Mean Platelet Volume 9.7 fL (7.5-11.0); Platelet Count 300 x10^3/uL (150-450); Red Blood Count 3.63 x10^6/uL (4.1-5.4); Red Cell Distribution Width 12.8 % (11.5-14.0); White Blood Count 8.3 x10^3/uL (4.0-10.5)
[2023-05-07 07:18] LABS: ALBUMIN 3.6 g/dL (3.5-5.0); ANION GAP 13.2 MEQ/L (5-15); BILIRUBIN,TOTAL 0.2 mg/dL (0.2-1.3); Calcium 8.7 mg/dL (8.4-10.2); Creatinine 1 1.44 mg/dL (0.52-1.04); Potassium 4.8 mmol/L (3.5-5.1); Total Protein 6.6 g/dL (6.3-8.2)
[2023-05-07] MEDS: ECOTRIN 81 MG PO SCH (09:10)
[2023-05-07] MEDS: Toprol-Xl 25MG Tablets PO SCH (09:10)
[2023-05-07] MEDS: Pepcid 20 MG PO SCH (09:11)
[2023-05-07] MEDS ORDERED: ROCEPHIN 1 GM / 100 ML NaCl 1 GM/100 ML IVPB IV SCH (10:00)
--- NOTE | 2023-05-07 10:39 | PCM.NOTE ---
Date and Time: 05/07/23 1030 Subjective Assessment: 05/07/23 is a 77 year old female with PMHX of cataracts, hyperlipidemia, OA, GERD, smoker- daily, open heart surgery, triple-A repair, and heart cath. Family explained that patient here for evaluation of altered mental status after taking Percocet. Her family states that she did not respond to phone call and when her son arrived at the house she was altered. He said that she was alert to person but not to place or time and could not recall certain events. Pt states she is here for recheck on finger that was I/D last night and confusion that started sometime today. She does have some redness and swelling to right thumb, with dried drainage on dressing. CT of brain reviewed, neurology consulted for further eval. She is unable to complete neuro assessment d/t confusion. 05/07 Pt resting in bed. She has increased confusion today. She tried to use the restroom today and had little output. She was also combative when up to the bedside commode. Bladder scan showed 455 ml, post void. Beard placed for acute urinary retention. She is incontinent of bowels. Neurology consulted today. He did not feel pt could tolerate the MRI machine. Daughter states she has anxiety and also would not be able to tolerate. He recommends repeat head CT tomorrow. Reports low suspicion for stroke on current head CT after further eval. She is unable to participate in physical exam d/t confusion. - Review of Systems Constitutional: No Fever, No Chills Eyes: No Symptoms Ears, Nose, & Throat: No Symptoms Respiratory: No Cough, No Short Of Breath Cardiac: No Chest Pain, No Edema, No Syncope Abdominal/Gastrointestinal: Other (incontinence), No Abdominal Pain, No Nausea, No Vomiting, No Diarrhea Genitourinary Symptoms: Urinary Retention, No Dysuria Musculoskeletal: No Back Pain, No Neck Pain Skin: No Rash Neurological: Other (confusion), No Dizziness, No Focal Weakness, No Sensory Changes Psychological: No Symptoms Endocrine: No Symptoms Hematologic/Lymphatic: No Symptoms Immunological/Allergic: No Symptoms Objective Exam General Appearance: no apparent distress, alert Neurologic Exam: alert, disoriented, confusion, agitation, uncooperative, other (unable to follow commands, awake but confused.), No motor deficits Skin Exam: normal color, warm, dry Eye Exam: PERRL, EOMI, eyes nml inspection Ears, Nose, Throat Exam: normal ENT inspection, pharynx normal, moist mucous membranes Neck Exam: normal inspection, non-tender, supple, full range of motion Respiratory Exam: normal breath sounds, lungs clear, No respiratory distress Cardiovascular Exam: regular rate/rhythm, normal heart sounds, tachycardia Gastrointestinal/Abdomen Exam: soft, No tenderness, No mass Extremity Exam: normal inspection, normal range of motion Back Exam: normal inspection, normal range of motion, No CVA tenderness, No vertebral tenderness Pelvic Exam: deferred Rectal Exam: deferred Objective Data Vital Signs: Vital Signs - 24 hr Temp Pulse Resp BP BP Pulse Ox 05/07/23 07:34 97.8 F 108 H 16 133/62 98 05/07/23 04:00 98.9 F 111 H 20 171/72 94 L 05/06/23 20:00 99.2 F 81 18 144/65 94 L 05/06/23 15:50 99 F 86 16 140/63 98 05/06/23 15:49 99 F 86 16 140/63 98 05/06/23 14:54 99 F 86 16 140/63 98 05/06/23 14:51 99 F 86 16 140/63 98 05/06/23 14:20 91 H 12 96 05/06/23 14:10 92 H 15 97 05/06/23 14:07 95 05/06/23 14:02 97 05/06/23 13:30 95 H 25 H 115/63 05/06/23 13:01 93 H 15 146/78 95 05/06/23 11:07 98.2 F 107 H 16 148/72 97 Pain Assessment - Last Documented Pain Intensity 0 Intake and Output: Intake & Output 05/04/23 05/05/23 05/06/23 05/07/23 11:59 11:59 11:59 11:59 Intake Total 1575 Output Total 201 Balance 1374 Weight 75.4 kg 74.4 kg Lab Results: Lab Results-Last 24 Hours 05/06/23 05/06/23 05/06/23 Range/Units 11:30 11:30 11:34 WBC 10.5 (4.0-10.5) x10^3/uL RBC 3.92 L (4.1-5.4) x10^6/uL Hgb 11.9 L (12.0-16.0) g/dL Hct 36.0 (35-47) % MCV 91.8 (78-100) fL MCH 30.4 (26-32) pg MCHC 33.1 (32-36) g/dL RDW 12.6 (11.5-14.0) % Plt Count 308 (150-450) x10^3/uL MPV 9.8 (7.5-11.0) fL Gran % 81.8 H (36.0-66.0) % Immature Gran % (Auto) 0.6 H (0.00-0.4) % Nucleat RBC Rel Count 0.0 (0.00-0.1) % Eos # (Auto) 0.19 (0-0.5) x10^3/uL Immature Gran # (Auto) 0.06 H (0.00-0.03) x10^3u/L Absolute Lymphs (auto) 0.93 L (1.0-4.6) x10^3/uL Absolute Monos (auto) 0.67 (0.0-1.3) x10^3/uL Absolute Nucleated RBC 0.00 (0.00-0.01) x10^3u/L Lymphocytes % 8.9 L (24.0-44.0) % Monocytes % 6.4 (0.0-12.0) % Eosinophils % 1.8 (0.00-5.0) % Basophils % 0.5 (0.0-0.4) % Absolute Granulocytes 8.58 H (1.4-6.9) x10^3/uL Basophils # 0.05 (0-0.4) x10^3/uL Sodium 135 (135-145) mmol/L Potassium 5.3 H (3.5-5.1) mmol/L Chloride 102 (98-107) mmol/L Carbon Dioxide 21 L (22-30) mmol/L Anion Gap 16.9 H (5-15) MEQ/L BUN 24 H (7-17) mg/dL Creatinine 1.67 H (0.52-1.04) mg/dL Estimated GFR 31.0 ML/MIN Glucose 117 H (74-106) mg/dL Calcium 8.7 (8.4-10.2) mg/dL Total Bilirubin 0.50 (0.2-1.3) mg/dL AST 20 (14-36) U/L ALT 10 (0-35) U/L Alkaline Phosphatase 47 (38-126) U/L Serum Total Protein 7.4 (6.3-8.2) g/dL Albumin 4.1 (3.5-5.0) g/dL Urine Color Yellow (Yellow) Urine Appearance Clear (Clear) Urine pH 6.0 (4.6-8.0) Ur Specific [place] 1.015 (1.005-1.030) Urine Protein Negative (Negative) Urine Glucose (UA) Negative (Negative) mg/dL Urine Ketones Negative (Negative) Urine Blood Small A (Negative) Urine Nitrite Negative (Negative) Urine Bilirubin Negative (Negative) Urine Urobilinogen 0.2 (0.2) mg/dL Ur Leukocyte Esterase Small A (Negative) U Hyaline Cast (Auto) NONE SEEN (0-2) /LPF Urine Microscopic RBC 0-2 (0-5) /HPF Urine Microscopic WBC 6-10 A (0-5) /HPF Ur Epithelial Cells Rare (None Seen) /HPF Urine Bacteria Few A (None Seen) /HPF Urine Culture Reflexed ORDERED SEPARATELY (NO) 05/07/23 05/07/23 Range/Units 07:00 07:00 WBC 8.3 (4.0-10.5) x10^3/uL RBC 3.63 L (4.1-5.4) x10^6/uL Hgb 11.1 L (12.0-16.0) g/dL Hct 34.4 L (35-47) % MCV 94.8 (78-100) fL MCH 30.6 (26-32) pg MCHC 32.3 (32-36) g/dL RDW 12.8 (11.5-14.0) % Plt Count 300 (150-450) x10^3/uL MPV 9.7 (7.5-11.0) fL Gran % (36.0-66.0) % Immature Gran % (Auto) (0.00-0.4) % Nucleat RBC Rel Count (0.00-0.1) % Eos # (Auto) (0-0.5) x10^3/uL Immature Gran # (Auto) (0.00-0.03) x10^3u/L Absolute Lymphs (auto) (1.0-4.6) x10^3/uL Absolute Monos (auto) (0.0-1.3) x10^3/uL Absolute Nucleated RBC (0.00-0.01) x10^3u/L Lymphocytes % (24.0-44.0) % Monocytes % (0.0-12.0) % Eosinophils % (0.00-5.0) % Basophils % (0.0-0.4) % Absolute Granulocytes (1.4-6.9) x10^3/uL Basophils # (0-0.4) x10^3/uL Sodium 137 (135-145) mmol/L Potassium 4.8 (3.5-5.1) mmol/L Chloride 110 H (98-107) mmol/L Carbon Dioxide 19 L (22-30) mmol/L Anion Gap 13.2 (5-15) MEQ/L BUN 18 H (7-17) mg/dL Creatinine 1.44 H (0.52-1.04) mg/dL Estimated GFR 37.0 ML/MIN Glucose 104 (74-106) mg/dL Calcium 8.7 (8.4-10.2) mg/dL Total Bilirubin 0.20 (0.2-1.3) mg/dL AST 17 (14-36) U/L ALT 10 (0-35) U/L Alkaline Phosphatase 47 (38-126) U/L Serum Total Protein 6.6 (6.3-8.2) g/dL Albumin 3.6 (3.5-5.0) g/dL Urine Color (Yellow) Urine Appearance (Clear) Urine pH (4.6-8.0) Ur Specific [place] (1.005-1.030) Urine Protein (Negative) Urine Glucose (UA) (Negative) mg/dL Urine Ketones (Negative) Urine Blood (Negative) Urine Nitrite (Negative) Urine Bilirubin (Negative) Urine Urobilinogen (0.2) mg/dL Ur Leukocyte Esterase (Negative) U Hyaline Cast (Auto) (0-2) /LPF Urine Microscopic RBC (0-5) /HPF Urine Microscopic WBC (0-5) /HPF Ur Epithelial Cells (None Seen) /HPF Urine Bacteria (None Seen) /HPF Urine Culture Reflexed (NO) Radiology Exams: Radiology Procedures Category Date Time Status CHEST 1 VIEW (PORTABLE) Routine Exams 05/06/23 17:56 Completed HEAD WITHOUT CONTRAST [CT] Stat Exams 05/06/23 11:27 Completed MRI BRAIN WITH CONTRAST [MRI] Routine Exams 05/08/23 14:45 Ordered Multi-Disciplinary Progress Notes: Multi-Disciplinary Progress Notes 05/06/23 20:26 Respiratory Note by Rupal Carpenter Pt is refusing to wear ETCO2 monitor at this time. Pt's SpO2 was 93% on room air. Pt is alert and is answering questions appropriately. Pt's son is at bedside and is requesting to end ETCO2 monitoring at this time. RNMegan was notified. Initialized on 05/06/23 20:26 - END OF NOTE Assessment/Plan (1) Altered mental status, unspecified Current Visit: Yes Status: Acute Code(s): R41.82 - ALTERED MENTAL STATUS, UNSPECIFIED (2) Dehydration Current Visit: Yes Status: Acute Code(s): E86.0 - DEHYDRATION (3) UTI (urinary tract infection) Current Visit: Yes Status: Acute Code(s): N39.0 - URINARY TRACT INFECTION, SITE NOT SPECIFIED (4) Acute on chronic renal failure Current Visit: Yes Status: Acute Code(s): N17.9 - ACUTE KIDNEY FAILURE, UNSPECIFIED; N18.9 - CHRONIC KIDNEY DISEASE, UNSPECIFIED (5) Hyperkalemia Current Visit: Yes Status: Acute Code(s): E87.5 - HYPERKALEMIA (6) HTN (hypertension) Current Visit: Yes Status: Chronic Code(s): I10 - ESSENTIAL (PRIMARY) HYPERTENSION (7) Smoker Current Visit: Yes Status: Acute Code(s): F17.200 - NICOTINE DEPENDENCE, UNSPECIFIED, UNCOMPLICATED (8) GERD (gastroesophageal reflux disease) Current Visit: Yes Status: Chronic Code(s): K21.9 - GASTRO-ESOPHAGEAL REFLUX DISEASE WITHOUT ESOPHAGITIS (9) Abscess of right thumb Current Visit: No Status: Acute Code(s): L02.511 - CUTANEOUS ABSCESS OF RIGHT HAND (10) Hyperlipidemia Current Visit: Yes Status: Chronic Assessment & Plan: (1) Altered mental status, unspecified Current Visit: Yes Status: Acute Assessment & Plan: - Pt admits to taking a percocet for thumb pain today- may be 2:2 this - CT brain: 05/06/23 IMPRESSION: 1. No acute intracerebral or extra axial hematoma. 2. Confluent hypoattenuation seen bilaterally in periventricular white matter and centrum semiovale representing microvascular ischemic changes, however the the possibility of acute ischemic infarction can not be entirely excluded, would recommend MRI brain including DWI/ADC . 3. An area of encephalomalacia seen in left parieto occipital region likely due to prior ischemic event. 4. Age-appropriate brain involutional changes 5. No obvious space occupying lesions seen. - Tele neuro consult - MRI Monday as we cannot do on the weekend - Had I& D yesterday in ER and sent home with antibiotics and pain meds. After taking pain meds pt became confused. - Son felt like she was also somewhat confused when she came into ER yesterday. - CO2 monitor per RT - Narcan PRN 05/06 - Tele neuro consult: recs are to repeat head CT tomorrow. D/c MRI as pt will n ot be able to tolerate. Continue ASA and plavix. - Most likely 2:2 UTI as Percocet should be almost out of system. Code(s): R41.82 - ALTERED MENTAL STATUS, UNSPECIFIED (2) Dehydration Current Visit: Yes Status: Acute Assessment & Plan: - IVF Code(s): E86.0 - DEHYDRATION (3) UTI (urinary tract infection) Current Visit: Yes Status: Acute Assessment & Plan: - ceftriaxone gave in ER - Will change to IV Ancef as pt also had an abscess of right thumb drained in ER yesterday. - UC pending 05/06 - UC - gram negative. Sensitivity pending Code(s): N39.0 - URINARY TRACT INFECTION, SITE NOT SPECIFIED (4) Acute on chronic renal failure Current Visit: Yes Status: Acute Assessment & Plan: - creat 1.67, BL 1.42 - gentle IVF d/t heart hx 05/06 - Creat 1.44 near baseline Code(s): N17.9 - ACUTE KIDNEY FAILURE, UNSPECIFIED; N18.9 - CHRONIC KIDNEY DISEASE, UNSPECIFIED (5) Hyperkalemia Current Visit: Yes Status: Acute Assessment & Plan: - K+ 5.3 - Hold spirolactone. - Recheck in AM. - Cont IVF 05/06 - resolved - Continue to hold spirolactone Code(s): E87.5 - HYPERKALEMIA (6) HTN (hypertension) Current Visit: Yes Status: Chronic Assessment & Plan: - continue home meds - BP stable - tele - Monitor Code(s): I10 - ESSENTIAL (PRIMARY) HYPERTENSION (7) Smoker Current Visit: Yes Status: Acute Assessment & Plan: - advised cessation - nicotine patch Code(s): F17.200 - NICOTINE DEPENDENCE, UNSPECIFIED, UNCOMPLICATED (8) GERD (gastroesophageal reflux disease) Current Visit: Yes Status: Chronic Assessment & Plan: - Cont home med-Pepcid Code(s): K21.9 - GASTRO-ESOPHAGEAL REFLUX DISEASE WITHOUT ESOPHAGITIS (9) Abscess of right thumb Current Visit: No Status: Acute Assessment & Plan: - Had I& D yesterday in ER and sent home with antibiotocs and pain meds. After taking pain meds pt became confused. - Son felt like she was also somewhat confused when she came into ER yesterday. - increased pain- tylenol - Ice pack PRN - Elevate right arm/hand to heart level - Start Ancef - Wound culture done in ER yesterday no growth to date. - BC x2 ordered - TDAP ordered, as was not gave in ER yesterday with I&D and she is unsure if up to date. - Right hand XR 05/01/23: Comparison: None 3 view right hand demonstrates osteopenia, moderate/advanced 1st metacarpal multangular scaphoid degenerative changes, tiny lunate subcortical cysts, and radiocarpal joint space narrowing. No other bony, articular, or soft tissue abnormalities. Code(s): L02.511 - CUTANEOUS ABSCESS OF RIGHT HAND (10) Hyperlipidemia Current Visit: Yes Status: Chronic Assessment & Plan: - continue statin Code(s): E78.5 - HYPERLIPIDEMIA, UNSPECIFIED (11) Delirium Current Visit: Yes Status: Acute Assessment & Plan: - 2:2 narcotic pain meds and UTI - avoid narcotics and benzos - Keep lights on during the day so she sleeps at night. - bed rest - Consider BEERS criteria for any new meds Code(s): R41.0 - DISORIENTATION, UNSPECIFIED (12) Acute encephalopathy Current Visit: Yes Status: Acute Assessment & Plan: - 2:2 UTI- being treated - causing confusion. - bedrest VTE: Plavix, SCD's PPI: Pepcid Next of KIN: SonArslan [phone] D/C plan: 1-2 days Code status: Full Code(s): G93.40 - ENCEPHALOPATHY, UNSPECIFIED
[2023-05-07] MEDS: Zofran 4 MG/2 ML VIAL IV PRN (15:08)
[2023-05-07] MEDS: PLAVIX Tablet PO SCH (15:51)
[2023-05-07] MEDS: ZOCOR 20MG PO SCH (22:26)
[2023-05-07] MEDS: MELATONIN PO SCH (22:27)
[2023-05-08 04:43] LABS: Hematocrit 37.4 % (35-47); Hemoglobin 11.8 g/dL (12.0-16.0); Mean Cell Volume 94.2 fL (78-100); Mean Corpuscular Hemoglobin 29.7 pg (26-32); Mean Corpuscular Hgb Concent. 31.6 g/dL (32-36); Mean Platelet Volume 9.2 fL (7.5-11.0); Platelet Count 323 x10^3/uL (150-450); Red Blood Count 3.97 x10^6/uL (4.1-5.4); Red Cell Distribution Width 12.7 % (11.5-14.0); White Blood Count 6.7 x10^3/uL (4.0-10.5)
[2023-05-08 05:02] LABS: ALBUMIN 3.6 g/dL (3.5-5.0); ANION GAP 14.5 MEQ/L (5-15); BILIRUBIN,TOTAL 0.2 mg/dL (0.2-1.3); Calcium 8.9 mg/dL (8.4-10.2); Creatinine 1 1.17 mg/dL (0.52-1.04); EST GLOMERULAR FILTRATION RATE 47.5 ML/MIN; Total Protein 6.9 g/dL (6.3-8.2)
--- NOTE | 2023-05-08 05:30 | PCM.NOTE ---
Date and Time: 05/08/23 0525 Subjective Assessment: Gladys Hector is a 77 year old female with a pmhx of cataracts, hyperlipidemia, OA, GERD, smoker- daily, open heart surgery, triple-A repair, and heart cath. Patient reported to ED 05/06/23 with AMS. Patient had I& D of abscess 05/05/23 in ED of her right thumb and sent home on Bactrim and Percocet for pain. After taking pain meds pt at home became confused and brought back to ED. Wound culture from this procedure is negative to date. Xray of her right hand with no acute findings. Initially it was thought the patients confusion may be secondary to the pain medications. UA suspicious for infection during current hospitalization with culture growing gram negative organism. Current treatment with cefazolin. Most likely the source of her confusion. Patient also with PVR of 455ml, purvis placed. CT of the head demonstrating microvascular ischemic changes, however the possibility of acute ischemic infarction could not be entirely excluded. Neurology consulted with recommendations for a repeat CT of the head (low suspicion for stroke) which will be performed today. The patient most likely could not tolerate an MRI per family due to anxiety. Patient has been started on ASA/Plavix. Patient also found with ЮЛИЯ, this could be secondary to urine retention, almost back to baseline (1.42), Objective Data Vital Signs: Vital Signs - 24 hr Temp Pulse Resp BP Pulse Ox 05/08/23 03:00 97.4 F 86 18 147/63 96 05/07/23 23:00 18 05/07/23 19:00 98.8 F 99 H 17 147/65 95 05/07/23 15:00 98.2 F 96 H 16 167/68 96 05/07/23 11:00 97.9 F 97 H 16 145/62 95 05/07/23 07:34 97.8 F 108 H 16 133/62 98 Pain Assessment - Last Documented Pain Intensity 0 Intake and Output: Intake & Output 05/05/23 05/06/23 05/07/23 05/08/23 11:59 11:59 11:59 11:59 Intake Total 1575 120 Output Total 201 Balance 1374 120 Weight 75.4 kg 74.4 kg Lab Results: Lab Results-Last 24 Hours 05/07/23 05/07/23 05/08/23 Range/Units 07:00 07:00 04:35 WBC 8.3 6.7 (4.0-10.5) x10^3/uL RBC 3.63 L 3.97 L (4.1-5.4) x10^6/uL Hgb 11.1 L 11.8 L (12.0-16.0) g/dL Hct 34.4 L 37.4 (35-47) % MCV 94.8 94.2 (78-100) fL MCH 30.6 29.7 (26-32) pg MCHC 32.3 31.6 L (32-36) g/dL RDW 12.8 12.7 (11.5-14.0) % Plt Count 300 323 (150-450) x10^3/uL MPV 9.7 9.2 (7.5-11.0) fL Sodium 137 (135-145) mmol/L Potassium 4.8 (3.5-5.1) mmol/L Chloride 110 H (98-107) mmol/L Carbon Dioxide 19 L (22-30) mmol/L Anion Gap 13.2 (5-15) MEQ/L BUN 18 H (7-17) mg/dL Creatinine 1.44 H (0.52-1.04) mg/dL Estimated GFR 37.0 ML/MIN Glucose 104 (74-106) mg/dL Calcium 8.7 (8.4-10.2) mg/dL Total Bilirubin 0.20 (0.2-1.3) mg/dL AST 17 (14-36) U/L ALT 10 (0-35) U/L Alkaline Phosphatase 47 (38-126) U/L Serum Total Protein 6.6 (6.3-8.2) g/dL Albumin 3.6 (3.5-5.0) g/dL 05/08/23 Range/Units 04:35 WBC (4.0-10.5) x10^3/uL RBC (4.1-5.4) x10^6/uL Hgb (12.0-16.0) g/dL Hct (35-47) % MCV (78-100) fL MCH (26-32) pg MCHC (32-36) g/dL RDW (11.5-14.0) % Plt Count (150-450) x10^3/uL MPV (7.5-11.0) fL Sodium 138 (135-145) mmol/L Potassium 5.0 (3.5-5.1) mmol/L Chloride 108 H (98-107) mmol/L Carbon Dioxide 21 L (22-30) mmol/L Anion Gap 14.5 (5-15) MEQ/L BUN 12 (7-17) mg/dL Creatinine 1.17 H (0.52-1.04) mg/dL Estimated GFR 47.5 ML/MIN Glucose 75 (74-106) mg/dL Calcium 8.9 (8.4-10.2) mg/dL Total Bilirubin 0.20 (0.2-1.3) mg/dL AST 28 (14-36) U/L ALT 11 (0-35) U/L Alkaline Phosphatase 48 (38-126) U/L Serum Total Protein 6.9 (6.3-8.2) g/dL Albumin 3.6 (3.5-5.0) g/dL Radiology Exams: Radiology Procedures Category Date Time Status CHEST 1 VIEW (PORTABLE) Routine Exams 05/06/23 17:56 Completed HEAD WITHOUT CONTRAST [CT] Routine Exams 05/08/23 10:38 Ordered HEAD WITHOUT CONTRAST [CT] Stat Exams 05/06/23 11:27 Completed Assessment/Plan (1) Altered mental status, unspecified Current Visit: Yes Status: Acute Assessment & Plan: - Pt admits to taking a percocet for thumb pain today- may be 2:2 this - CT brain: 05/06/23 IMPRESSION: 1. No acute intracerebral or extra axial hematoma. 2. Confluent hypoattenuation seen bilaterally in periventricular white matter and centrum semiovale representing microvascular ischemic changes, however the the possibility of acute ischemic infarction can not be entirely excluded, would recommend MRI brain including DWI/ADC . 3. An area of encephalomalacia seen in left parieto occipital region likely due to prior ischemic event. 4. Age-appropriate brain involutional changes 5. No obvious space occupying lesions seen. - Tele neuro consult - MRI Monday as we cannot do on the weekend - Had I& D yesterday in ER and sent home with antibiotics and pain meds. After taking pain meds pt became confused. - Son felt like she was also somewhat confused when she came into ER yesterday. - CO2 monitor per RT - Narcan PRN 05/06 - Tele neuro consult: recs are to repeat head CT tomorrow. D/c MRI as pt will not be able to tolerate. Continue ASA and plavix. - Most likely 2:2 UTI as Percocet should be almost out of system. Code(s): R41.82 - ALTERED MENTAL STATUS, UNSPECIFIED (2) Dehydration Current Visit: Yes Status: Acute Assessment & Plan: - IVF Code(s): E86.0 - DEHYDRATION (3) UTI (urinary tract infection) Current Visit: Yes Status: Acute Assessment & Plan: - ceftriaxone gave in ER - Will change to IV Ancef as pt also had an abscess of right thumb drained in ER yesterday. - UC pending 05/06 - UC - gram negative. Sensitivity pending Code(s): N39.0 - URINARY TRACT INFECTION, SITE NOT SPECIFIED (4) Acute on chronic renal failure Current Visit: Yes Status: Acute Assessment & Plan: - creat 1.67, BL 1.42 - gentle IVF d/t heart hx 05/06 - Creat 1.44 near baseline Code(s): N17.9 - ACUTE KIDNEY FAILURE, UNSPECIFIED; N18.9 - CHRONIC KIDNEY DISEASE, UNSPECIFIED (5) Hyperkalemia Current Visit: Yes Status: Acute Assessment & Plan: - K+ 5.3 - Hold spirolactone. - Recheck in AM. - Cont IVF 05/06 - resolved - Continue to hold spirolactone Code(s): E87.5 - HYPERKALEMIA (6) HTN (hypertension) Current Visit: Yes Status: Chronic Assessment & Plan: - continue home meds - BP stable - tele - Monitor Code(s): I10 - ESSENTIAL (PRIMARY) HYPERTENSION (7) Smoker Current Visit: Yes Status: Acute Assessment & Plan: - advised cessation - nicotine patch Code(s): F17.200 - NICOTINE DEPENDENCE, UNSPECIFIED, UNCOMPLICATED (8) GERD (gastroesophageal reflux disease) Current Visit: Yes Status: Chronic Assessment & Plan: - Cont home med-Pepcid Code(s): K21.9 - GASTRO-ESOPHAGEAL REFLUX DISEASE WITHOUT ESOPHAGITIS (9) Abscess of right thumb Current Visit: No Status: Acute Assessment & Plan: - Had I& D yesterday in ER and sent home with antibiotocs and pain meds. After taking pain meds pt became confused. - Son felt like she was also somewhat confused when she came into ER yesterday. - increased pain- tylenol - Ice pack PRN - Elevate right arm/hand to heart level - Start Ancef - Wound culture done in ER yesterday no growth to date. - BC x2 ordered - TDAP ordered, as was not gave in ER yesterday with I&D and she is unsure if up to date. - Right hand XR 05/01/23: Comparison: None 3 view right hand demonstrates osteopenia, moderate/advanced 1st metacarpal multangular scaphoid degenerative changes, tiny lunate subcortical cysts, and radiocarpal joint space narrowing. No other bony, articular, or soft tissue abnormalities. Code(s): L02.511 - CUTANEOUS ABSCESS OF RIGHT HAND (10) Hyperlipidemia Current Visit: Yes Status: Chronic Assessment & Plan: - continue statin Code(s): E78.5 - HYPERLIPIDEMIA, UNSPECIFIED (11) Delirium Current Visit: Yes Status: Acute Assessment & Plan: - 2:2 narcotic pain meds and UTI - avoid narcotics and benzos - Keep lights on during the day so she sleeps at night. - bed rest - Consider BEERS criteria for any new meds Code(s): R41.0 - DISORIENTATION, UNSPECIFIED (12) Acute encephalopathy Current Visit: Yes Status: Acute Assessment & Plan: - 2:2 UTI- being treated - causing confusion. - bedrest VTE: Plavix, SCD's PPI: Pepcid Next of KIN: SonArslan [phone] D/C plan: 1-2 days Code status: Full Code(s): R41.82 - ALTERED MENTAL STATUS, UNSPECIFIED (2) Dehydration Current Visit: Yes Status: Acute Code(s): E86.0 - DEHYDRATION (3) UTI (urinary tract infection) Current Visit: Yes Status: Acute Code(s): N39.0 - URINARY TRACT INFECTION, SITE NOT SPECIFIED (4) Acute on chronic renal failure Current Visit: Yes Status: Acute Code(s): N17.9 - ACUTE KIDNEY FAILURE, UNSPECIFIED; N18.9 - CHRONIC KIDNEY DISEASE, UNSPECIFIED (5) Hyperkalemia Current Visit: Yes Status: Acute Code(s): E87.5 - HYPERKALEMIA (6) HTN (hypertension) Current Visit: Yes Status: Chronic Code(s): I10 - ESSENTIAL (PRIMARY) HYPERTENSION (7) Smoker Current Visit: Yes Status: Acute Code(s): F17.200 - NICOTINE DEPENDENCE, UNSPECIFIED, UNCOMPLICATED (8) GERD (gastroesophageal reflux disease) Current Visit: Yes Status: Chronic Code(s): K21.9 - GASTRO-ESOPHAGEAL REFLUX DISEASE WITHOUT ESOPHAGITIS (9) Abscess of right thumb Current Visit: No Status: Acute Code(s): L02.511 - CUTANEOUS ABSCESS OF RIGHT HAND (10) Hyperlipidemia Current Visit: Yes Status: Chronic Code(s): E78.5 - HYPERLIPIDEMIA, UNSPECIFIED
--- NOTE | 2023-05-08 10:06 | XRAY ---
Indication: Confusion. Multiple contiguous assessment images obtained through the head without contrast. Comparison: May 06, 2023 Again age-appropriate global atrophy, moderate periventricular degenerative micro-ischemia, small focus remote encephalomalacia posterior left parietal lobe, and remote lacunar infarct left caudate head. No acute intracranial hemorrhage, hydrocephalus, or mass effect. Fourth ventricle is midline. Bony calvarium intact. Again tiny fluid leveling both maxillary sinuses and partial opacification inferior right mastoid air cells. 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 Again incidental paranasal sinus disease. No new/acute intracranial abnormalities.
[2023-05-08 12:22] VITALS: BP 165/72; PULSE 77; RESP 17; TEMP 97.2; O2SAT 97
--- NOTE | 2023-05-08 13:14 | PCM.DS ---
Discharge Summary Date of Admission: 05/06/23 14:40 Date of Discharge: 05/08/23 Admitting Physician: MARIANNE FISHER MD Consults: Consults on Case 05/06/23 14:47 Consult Neurology ROUTINE Primary Care Provider: JOHN BRITT <SHAKIR PHILLIP - Last Filed: 05/08/23 13:08> Date of Admission: 05/06/23 14:40 Admitting Physician: MARIANNE FISHER MD Consults: Consults on Case 05/06/23 14:47 Consult Neurology ROUTINE Primary Care Provider: JOHN BRITT <DIANA MOYA - Last Filed: 05/09/23 06:17> Allergies <SHAKIR PHILLIP - Last Filed: 05/08/23 13:08> <DIANA MOYA - Last Filed: 05/09/23 06:17> Allergies amlodipine Allergy (Mild, Verified 05/05/23 18:27) Hospital Summary - Hospital Course Hospital Course: Gladys Hector is a 77 year old female with a pmhx of cataracts, hyperlipidemia, OA, GERD, smoker- daily, open heart surgery, triple-A repair, and heart cath. Patient reported to ED 05/06/23 with AMS. Patient had I& D of abscess 05/05/23 in ED of her right thumb and sent home on Bactrim and Percocet for pain. After taking pain meds pt at home became confused and brought back to ED. Wound culture from this procedure is negative to date. Xray of her right hand with no acute findings. Initially it was thought the patients confusion may be secondary to the pain medications. Urine culture with Ecoli. IP treatment with cefazolin. Most likely the source of her confusion. Patient also with PVR of 455ml, purvis placed. CT of the head demonstrating microvascular ischemic changes, however the possibility of acute ischemic infarction could not be entirely excluded. Neurology consulted with recommendations for a repeat CT of the head (low suspicion for stroke) which will be performed today. Repeat CT with no acute findings. The patient most likely could not tolerate an MRI per family due to anxiety. Patient has been started on ASA/Plavix. Patient also found with ЮЛИЯ, this could be secondary to urine retention, now back at baseline. Mentation is now at baseline, patient A&O x 4. Will send her home on cefdinir for UTI. Advised follow up with PCP for UTI resolution as well as right thumb re-assessment. Discharge Note New Diagnosis: UTI/AMS New Medications: Cefdinir Follow Up: PCP Latest Assessment & Plan (1) Altered mental status, unspecified Current Visit: Yes Status: Acute Assessment & Plan: - Pt admits to taking a percocet for thumb pain today- may be 2:2 this - CT brain: 05/06/23 IMPRESSION: 1. No acute intracerebral or extra axial hematoma. 2. Confluent hypoattenuation seen bilaterally in periventricular white matter and centrum semiovale representing microvascular ischemic changes, however the the possibility of acute ischemic infarction can not be entirely excluded, would recommend MRI brain including DWI/ADC . 3. An area of encephalomalacia seen in left parieto occipital region likely due to prior ischemic event. 4. Age-appropriate brain involutional changes 5. No obvious space occupying lesions seen. - Tele neuro consult - MRI Monday as we cannot do on the - Had I& D yesterday in ER and sent home with antibiotics and pain meds. After taking pain meds pt became confused. - Son felt like she was also somewhat confused when she came into ER yesterday. - CO2 monitor per RT - Narcan PRN 05/06 - Tele neuro consult: recs are to repeat head CT tomorrow. D/c MRI as pt will not be able to tolerate. Continue ASA and plavix. - Most likely 2:2 UTI as Percocet should be almost out of system. Code(s): R41.82 - ALTERED MENTAL STATUS, UNSPECIFIED (2) Dehydration Current Visit: Yes Status: Acute Assessment & Plan: - IVF Code(s): E86.0 - DEHYDRATION (3) UTI (urinary tract infection) Current Visit: Yes Status: Acute Assessment & Plan: - ceftriaxone gave in ER - Will change to IV Ancef as pt also had an abscess of right thumb drained in ER yesterday. - UC pending 05/06 - UC - gram negative. Sensitivity pending Code(s): N39.0 - URINARY TRACT INFECTION, SITE NOT SPECIFIED (4) Acute on chronic renal failure Current Visit: Yes Status: Acute Assessment & Plan: - creat 1.67, BL 1.42 - gentle IVF d/t heart hx 05/06 - Creat 1.44 near baseline Code(s): N17.9 - ACUTE KIDNEY FAILURE, UNSPECIFIED; N18.9 - CHRONIC KIDNEY DISEASE, UNSPECIFIED (5) Hyperkalemia Current Visit: Yes Status: Acute Assessment & Plan: - K+ 5.3 - Hold spirolactone. - Recheck in AM. - Cont IVF 05/06 - resolved - Continue to hold spirolactone Code(s): E87.5 - HYPERKALEMIA (6) HTN (hypertension) Current Visit: Yes Status: Chronic Assessment & Plan: - continue home meds - BP stable - tele - Monitor Code(s): I10 - ESSENTIAL (PRIMARY) HYPERTENSION (7) Smoker Current Visit: Yes Status: Acute Assessment & Plan: - advised cessation - nicotine patch Code(s): F17.200 - NICOTINE DEPENDENCE, UNSPECIFIED, UNCOMPLICATED (8) GERD (gastroesophageal reflux disease) Current Visit: Yes Status: Chronic Assessment & Plan: - Cont home med-Pepcid Code(s): K21.9 - GASTRO-ESOPHAGEAL REFLUX DISEASE WITHOUT ESOPHAGITIS (9) Abscess of right thumb Current Visit: No Status: Acute Assessment & Plan: - Had I& D yesterday in ER and sent home with antibiotocs and pain meds. After taking pain meds pt became confused. - Son felt like she was also somewhat confused when she came into ER yesterday. - increased pain- tylenol - Ice pack PRN - Elevate right arm/hand to heart level - Start Ancef - Wound culture done in ER yesterday no growth to date. - BC x2 ordered - TDAP ordered, as was not gave in ER yesterday with I&D and she is unsure if up to date. - Right hand XR 05/01/23: Comparison: None 3 view right hand demonstrates osteopenia, moderate/advanced 1st metacarpal multangular scaphoid degenerative changes, tiny lunate subcortical cysts, and radiocarpal joint space narrowing. No other bony, articular, or soft tissue abnormalities. Code(s): L02.511 - CUTANEOUS ABSCESS OF RIGHT HAND (10) Hyperlipidemia Current Visit: Yes Status: Chronic Assessment & Plan: - continue statin Code(s): E78.5 - HYPERLIPIDEMIA, UNSPECIFIED (11) Delirium Current Visit: Yes Status: Acute Assessment & Plan: - 2:2 narcotic pain meds and UTI - avoid narcotics and benzos - Keep lights on during the day so she sleeps at night. - bed rest - Consider BEERS criteria for any new meds Code(s): R41.0 - DISORIENTATION, UNSPECIFIED (12) Acute encephalopathy Current Visit: Yes Status: Acute Assessment & Plan: - 2:2 UTI- being treated - causing confusion. - bedrest I spent 35 minutes [id number] with the patient on the day of discharge performing discharge exam, discussing hospital stay and discharge instructions with patient and caregivers, preparation of discharge records, prescriptions & referral forms and addressing any questions/concerns the patient had as documented above. - Vitals & Intake/Output Vital Signs: Vital Signs Temperature 97.2 F 05/08/23 12:00 Pulse Rate 77 05/08/23 12:00 Respiratory Rate 17 05/08/23 12:00 Blood Pressure 165/72 05/08/23 12:00 O2 Sat by Pulse Oximetry 97 05/08/23 12:00 Intake & Output: Intake & Output 05/06/23 05/07/23 05/08/23 05/09/23 11:59 11:59 11:59 11:59 Intake Total 1575 240 Output Total 201 Balance 1374 240 Weight 75.4 kg 74.4 kg - Lab Result Diagrams: 05/08/23 04:35 05/08/23 04:35 Lab Results-Last 24 Hrs: Lab Results-Last 24 Hours 05/08/23 05/08/23 Range/Units 04:35 04:35 WBC 6.7 (4.0-10.5) x10^3/uL RBC 3.97 L (4.1-5.4) x10^6/uL Hgb 11.8 L (12.0-16.0) g/dL Hct 37.4 (35-47) % MCV 94.2 (78-100) fL MCH 29.7 (26-32) pg MCHC 31.6 L (32-36) g/dL RDW 12.7 (11.5-14.0) % Plt Count 323 (150-450) x10^3/uL MPV 9.2 (7.5-11.0) fL Sodium 138 (135-145) mmol/L Potassium 5.0 (3.5-5.1) mmol/L Chloride 108 H (98-107) mmol/L Carbon Dioxide 21 L (22-30) mmol/L Anion Gap 14.5 (5-15) MEQ/L BUN 12 (7-17) mg/dL Creatinine 1.17 H (0.52-1.04) mg/dL Estimated GFR 47.5 ML/MIN Glucose 75 (74-106) mg/dL Calcium 8.9 (8.4-10.2) mg/dL Total Bilirubin 0.20 (0.2-1.3) mg/dL AST 28 (14-36) U/L ALT 11 (0-35) U/L Alkaline Phosphatase 48 (38-126) U/L Serum Total Protein 6.9 (6.3-8.2) g/dL Albumin 3.6 (3.5-5.0) g/dL Micro Results-Entire Visit: Microbiology 05/07/23 10:51 Urine Culture - Preliminary Urine, Indwelling Catheter NO GROWTH TO DATE 05/06/23 11:35 Urine Culture - Final Catherized Escherichia Coli 05/06/23 11:20 Blood Culture - Preliminary Blood 05/06/23 16:55 Blood Culture - Preliminary Blood - Radiology Exams Ordered Rad Exams-Entire Visit: Radiology Procedures Category Date Time Status CHEST 1 VIEW (PORTABLE) Routine Exams 05/06/23 17:56 Completed HEAD WITHOUT CONTRAST [CT] Routine Exams 05/08/23 10:38 Completed - Procedures and Test Procedures and Tests throughout Hospitalization: Therapy Orders & Screens 05/06/23 14:45 PT Eval & Treat ( Order) ONCE Reason for Eval:: CONFUSION Diagnosis: WEAKNESS 05/06/23 16:28 RT Miscellaneous Order ROUTINE Comment: Physician Instructions: Reason For Exam: CO2 monitor for narcotic use that has changed LOC Diagnosis: WEAKNESS <SHAKIR PHILLIP - Last Filed: 05/08/23 13:08> - Vitals & Intake/Output Vital Signs: Vital Signs Temperature 97.2 F 05/08/23 12:00 Pulse Rate 77 05/08/23 12:00 Respiratory Rate 17 05/08/23 12:00 Blood Pressure 165/72 05/08/23 12:00 O2 Sat by Pulse Oximetry 97 05/08/23 12:00 Intake & Output: Intake & Output 05/06/23 05/07/23 05/08/23 05/09/23 11:59 11:59 11:59 11:59 Intake Total 1575 240 120 Output Total 201 Balance 1374 240 120 Weight 75.4 kg 74.4 kg - Lab Result Diagrams: 05/08/23 04:35 05/08/23 04:35 Micro Results-Entire Visit: Microbiology 05/07/23 10:51 Urine Culture - Preliminary Urine, Indwelling Catheter NO GROWTH TO DATE 05/06/23 11:35 Urine Culture - Final Catherized Escherichia Coli 05/06/23 11:20 Blood Culture - Preliminary Blood 05/06/23 16:55 Blood Culture - Preliminary Blood - Radiology Exams Ordered Rad Exams-Entire Visit: Radiology Procedures Category Date Time Status HEAD WITHOUT CONTRAST [CT] Routine Exams 05/08/23 10:38 Completed - Procedures and Test Procedures and Tests throughout Hospitalization: Therapy Orders & Screens 05/06/23 14:45 PT Eval & Treat (MD Order) ONCE Reason for Eval:: CONFUSION Diagnosis: WEAKNESS 05/06/23 16:28 RT Miscellaneous Order ROUTINE Comment: Physician Instructions: Reason For Exam: CO2 monitor for narcotic use that has changed LOC Diagnosis: WEAKNESS <DIANA MOYA - Last Filed: 05/09/23 06:17> Discharge Exam General Appearance: no apparent distress Neurologic Exam: alert, oriented x 3, cooperative Eye Exam: PERRL Ears, Nose, Throat Exam: normal ENT inspection Neck Exam: normal inspection Respiratory Exam: normal breath sounds, lungs clear Cardiovascular Exam: regular rate/rhythm, normal heart sounds Gastrointestinal/Abdomen Exam: soft, normal bowel sounds Pelvic Exam: deferred Rectal Exam: deferred Back Exam: normal inspection Extremity Exam: normal inspection Skin Exam: normal color <SHAKIR PHILLIP - Last Filed: 05/08/23 13:08> Final Diagnosis/Problem List - Final Discharge Diagnosis/Problem (1) UTI (urinary tract infection) Status: Acute Code(s): N39.0 - URINARY TRACT INFECTION, SITE NOT SPECIFIED (2) Altered mental status, unspecified Status: Resolved Code(s): R41.82 - ALTERED MENTAL STATUS, UNSPECIFIED (3) Dehydration Status: Resolved Code(s): E86.0 - DEHYDRATION (4) Acute on chronic renal failure Status: Resolved Code(s): N17.9 - ACUTE KIDNEY FAILURE, UNSPECIFIED; N18.9 - CHRONIC KIDNEY DISEASE, UNSPECIFIED (5) Hyperkalemia Status: Resolved Code(s): E87.5 - HYPERKALEMIA (6) HTN (hypertension) Status: Chronic Code(s): I10 - ESSENTIAL (PRIMARY) HYPERTENSION (7) Smoker Status: Chronic Code(s): F17.200 - NICOTINE DEPENDENCE, UNSPECIFIED, UNCOMPLICATED (8) GERD (gastroesophageal reflux disease) Status: Chronic Code(s): K21.9 - GASTRO-ESOPHAGEAL REFLUX DISEASE WITHOUT ESOPHAGITIS (9) Abscess of right thumb Status: Acute Code(s): L02.511 - CUTANEOUS ABSCESS OF RIGHT HAND (10) Hyperlipidemia Status: Chronic Code(s): E78.5 - HYPERLIPIDEMIA, UNSPECIFIED <SHAKIR PHILLIP - Last Filed: 05/08/23 13:08> <SHAKIR PHILLIP - Last Filed: 05/08/23 13:08> <DIANA MOYA - Last Filed: 05/09/23 06:17> - Discharge Disposition: Home, Self-Care Condition: Stable Prescriptions: New Cefdinir 300 mg PO BID 5 Days #10 cap Continue Metoprolol Succinate 50 mg [Toprol Xl 50 MG] 0.5 tab PO DAILY Aspirin 81 gm Chew [Baby Aspirin 81 mg Chew] 1 tab PO DAILY Spironolactone 25 mg [Aldactone 25 MG] 1 tab PO DAILY Simvastatin [Zocor] 1 tab PO HS Clopidogrel Bisulfate [PLAVIX Tablet] 1 tab PO DAILY Famotidine 20 mg [Pepcid 20 MG] 1 tab PO DAILY Discontinued Celecoxib 100 mg [celeBREX 100 MG] 1 cap PO BID Oxycodone HCl/Acetaminophen [Percocet 5-325 mg Tablet] 1 each PO Q8H PRN PRN #6 tablet MDD 3 PRN Reason: Moderate To Severe Pain Smz/Tmp Ds Tablet [Bactrim Ds Tablet] 1 udtab PO BID #14 tablet Instructions: Altered Mental Status (DC) Additional Instructions: [facility] HAS BEEN SET UP FOR YOU. THEY WILL CALL YOU TO ARRANGE A TIME TO COME SEE YOU. THEIR PHONE NUMBER IS [phone] IF YOU NEED ANYTHING BEFORE THEIR FIRST VISIT Follow up with: JOHN BRITT [Primary Care Provider] - 05/15/23 8:30 am CONG Encounter - CONG Encounter Attestation CONG Encounter Attestation: "[email or web address] on 05/08/2023 andhavediscussed pertinent aspects of their care with Shakir Becker agree with the history, physical exam (any modifications based on my personal exam will be noted below), assessment, and plan as outlined in original note. Please see immediately below for my summary of findings and additional assessment and plan along with any meaningful corrections/explanations to the Subjective/Objective portions of the CONG note will be noted." My portion of the encounter took place via telemedicine. <DIANA MOYA - Last Filed: 05/09/23 06:17>
== END 2023-05-08 15:01 | disposition home or self-care (01) ==
LOC: ED 10:58 → MED SURG 14:40
PROVIDERS: ADMIT Internal Medicine; ATTEND Internal Medicine
DX: N39.0 Urinary tract infection, site not specified (principal); R41.82 Altered mental status, unspecified; E78.5 Hyperlipidemia, unspecified; I10 Essential (primary) hypertension; G93.40 Encephalopathy, unspecified; B96.20 Unspecified Escherichia coli [E. coli] as the cause of diseases classified elsewhere; F17.200 Nicotine dependence, unspecified, uncomplicated; E86.0 Dehydration; N17.9 Acute kidney failure, unspecified; N18.9 Chronic kidney disease, unspecified; K21.9 Gastro-esophageal reflux disease without esophagitis; L02.511 Cutaneous abscess of right hand; Z79.899 Other long term (current) drug therapy; Z95.0 Presence of cardiac pacemaker; Z79.01 Long term (current) use of anticoagulants; Z86.73 Personal history of transient ischemic attack (TIA), and cerebral infarction without residual deficits; Z20.828 Contact with and (suspected) exposure to other viral communicable diseases
CPT/HCPCS: 36000; 36415; 70450; 71045; 80053; 81001; 85025; 85027; 87040; 87077; 87086; 87186; 90471; 96365; 97161; 99285; P9612; Q3014; 90714; G0378; J0690; J0696; J2405; A9270-GY

== ENCOUNTER 2024-06-07 20:27 | Emergency (ER) | payer MEDICARE, OTHER ==
--- NOTE | 2024-06-07 20:41 | ERPHSYRPT ---
- History of Present Illness Time Seen by Provider: 06/07/24 20:40 Source: patient, family Exam Limitations: no limitations Physician History: This is an 78-year-old white female patient who arrives by private vehicle accompanied by family with the complaint of right hip, right knee and right ankle pain after a fall that occurred prior to arrival. Patient got tripped up on her feet and fell. She did not hit her head. She has no headache. She did not injure her neck. She has no neck pain. She took Tylenol prior to arrival. She does not want any more medication for pain. Occurred: just prior to arrival Reason for Fall: fell from standing pos Injuries/Pain Location: lower extremity (Right hip, right knee and right ankle) Loss of Consciousness: no loss of consciousness Quality: aching Severity of Pain-Max: mild Severity of Pain-Current: mild Modifying Factors: Improves With: movement Associated Symptoms (Fall): extremity injury (Right hip, right knee and right ankle), No back pain, No chest pain, No dizziness, No headache, No vision changes Allergies/Adverse Reactions: amlodipine Allergy (Mild, Verified 06/07/24 20:44) Opioids - Morphine Analogues Adverse Reaction (Intermediate, Verified 06/07/24 20:44) CAUSES SEVERE CONFUSION / DELIRIUM Opioids-Methadone and Related Adverse Reaction (Intermediate, Verified 06/07/24 20:44) CAUSES SEVERE CONFUSION / DELIRIUM Home Medications: Aspirin 81 gm Chew [Baby Aspirin 81 mg Chew] 1 tab PO DAILY 05/05/23 [History] Clopidogrel Bisulfate [PLAVIX Tablet] 1 tab PO DAILY 05/05/23 [History] Famotidine 20 mg [Pepcid 20 MG] 1 tab PO DAILY 05/05/23 [History] Metoprolol Succinate 50 mg [Toprol Xl 50 MG] 0.5 tab PO DAILY 05/05/23 [History] Spironolactone 25 mg [Aldactone 25 MG] 1 tab PO DAILY 05/05/23 [History] Hx Tetanus, Diphtheria Vaccination/Date Given: Yes Hx Influenza Vaccination/Date Given: Yes Hx Pneumococcal Vaccination/Date Given: Yes Travel Risk - International Travel Have you traveled outside of the country in past 3 weeks: No - Emerging Infectious Disease Are you exhibiting symptoms associated with any current EIDs: No - Review of Systems Constitutional: No Symptoms Eyes: No Symptoms Ears, Nose, & Throat: No Symptoms Respiratory: No Symptoms Cardiac: No Symptoms Abdominal/Gastrointestinal: No Symptoms Genitourinary Symptoms: No Symptoms Musculoskeletal: Fall, Injury (Right hip, right knee and right ankle) Skin: No Symptoms Neurological: No Symptoms Psychological: No Symptoms Endocrine: No Symptoms Hematologic/Lymphatic: No Symptoms Immunological/Allergic: No Symptoms All Other Systems: Reviewed and Negative - Past Medical History Pertinent Past Medical History: Yes Neurological History: Stroke ENT History: Cataracts Cardiac History: High Cholesterol, Hypertension Respiratory History: Other Endocrine Medical History: No Pertinent History Musculoskeletal History: Osteoarthritis GI Medical History: GERD History: No Pertinent History Psycho-Social History: No Pertinent History Female Reproductive Disorders: No Pertinent History Other Medical History: SOB, SMOKER, OPEN HEART SURGERY. - Past Surgical History Past Surgical History: Yes Neuro Surgical History: No Pertinent History Cardiac: CABG, Cardiac Catheterization, Other Respiratory: No Pertinent History Gastrointestinal: No Pertinent History Genitourinary: No Pertinent History Musculoskeletal: No Pertinent History Female Surgical History: No Pertinent History Other Surgical History: Triple A repair. Carotid - Social History Smoking Status: Current every day smoker How long have you smoked: years Exposure to second hand smoke: No Drug Use: none - Social Determinants of Health Will the patient participate in the screening: Yes Do you worry about a steady place to live?: No In the past 12 months,have you had to go without utilities?: No Transportation Issues: No Has anyone in your support network made you feel unsafe?: No Have you or anyone in your house had to go w/o enough food: No - Nursing Vital Signs Nursing Vital Signs: Initial Vital Signs Pulse Rate 90 06/07/24 20:37 Respiratory Rate 18 06/07/24 20:37 Blood Pressure 119/95 06/07/24 20:37 O2 Sat by Pulse Oximetry 98 06/07/24 20:37 Pain Scale Pain Intensity 6 - Vu Coma Score Best Eye Response (Vu): (4) open spontaneously Best Verbal Response (Harlan): (5) oriented Best Motor Response (Harlan): (6) obeys commands Harlan Total: 15 - Physical Exam General Appearance: no apparent distress, alert, anxiety, obese Eye Exam: PERRL/EOMI, eyes nml inspection ENT Exam: airway nml, nml ext.inspection Neck Exam: supple, trachea midline, full range of motion, normal alignment, normal inspection Respiratory/Chest Exam: No chest tenderness Gastrointestinal Exam: No tenderness Rectal Exam: not done Back Exam: normal inspection, normal range of motion, No CVA tenderness, No vertebral tenderness Extremity Exam: normal inspection, normal range of motion, capillary refill <3 sec, pelvis stable, hip tenderness (Right side), tenderness (Right ankle and right knee without evidence of deformity in either site), No deformities Neurologic Exam: alert, oriented x 3, cooperative, associate 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 analyst II-XII nml as tested, normal mood/affect, nml cerebellar function, nml station & gait, sensation nml Skin Exam: normal color, warm, dry SpO2 Interpretation: normal O2 Delivery: Room Air - Course Nursing assessment & vital signs reviewed: Yes Ordered Tests: Active Orders 24 hr Category Date Time Status ANKLE (3 VIEWS) Stat Exams 06/07/24 20:53 Taken HIP UNI (2V) INCL PEL IF DONE Stat Exams 06/07/24 20:54 Taken KNEE (3 VIEWS) Stat Exams 06/07/24 20:53 Taken - Progress Progress: unchanged, pain not gone completely, re-examined Progress Note: 06/07/24 22:55 Medical decision making and the assignment of low complexity of this patient's medical issue today is based on review of the patient's past medical history, review the patient's medication list, reviewed patient drug allergy list, history present illness and physical findings on examination. The workup in this patient includes x-ray of the patient's right hip and pelvis, right knee and right ankle. Differential diagnosis includes but is not limited to right hip, right ankle and right knee contusion/fracture/dislocation I interpreted the patient's preliminary report of the right hip and pelvis. I see no acute fracture or dislocation. I interpreted the patient's preliminary report of the patient's right knee. I see no acute fracture or dislocation. I interpreted the patient's preliminary report of the patient's right ankle. I see no acute fracture or dislocation. The patient and her family member are aware that this is a preliminary report not the final report. They will receive a call from our emergency department if the final report is different from the preliminary report Counseled pt/family regarding: diagnosis, need for follow-up, rad results Medical Desision Making - Independent Historian Additional History obtained from: Family - Diagnostic Testing Diagnostic test were ordered, analyzed, and reviewed by me: Yes Radiological Interpretation: Interpreted by me, Teleradiologist Report - Risk of complications Low Risk: Low risk of morbidity from additional dx testing or treatment - Departure Departure Disposition: Home Clinical Impression: Fall with no significant injury Condition: Stable Critical Care Time: No Referrals: JOHN BRITT [Primary Care Provider, UNKNOWN] - Follow up/PCP as directed Additional Instructions: If there are no contraindications, you may use Tylenol and ibuprofen for pain control. Ice pack to tender areas 2-3 times a day for the next 3 days. May follow-up with your primary care provider or proceed to the [facility] orthopedic clinic on 06/10/2024 between the hours of 8 and 10 AM. It is a walk-in clinic and you do not need to have an appointment.
[2024-06-07 20:43] VITALS: TEMP 98.7; O2SAT 97
[2024-06-07 23:02] VITALS: BP 155/85; PULSE 84; RESP 23
--- NOTE | 2024-06-08 05:39 | XRAY ---
Indication: Pain following fall. Comparison: None AP pelvis and 2 view right hip demonstrate osteopenia, mild degenerative changes both hips, mild scattered arteriosclerotic disease, incompletely visualized biiliac stents, and surgical clips overlying the right hip. No acute bony, articular, or soft tissue abnormalities.
--- NOTE | 2024-06-08 05:41 | XRAY ---
Indication: Pain following fall. Comparison: None 3 view right knee demonstrates osteopenia, minimal/mild tricompartmental degenerative changes, tiny nonspecific effusion, and mild scattered vascular calcifications. No other bony, articular, or soft tissue abnormalities.
--- NOTE | 2024-06-08 05:43 | XRAY ---
Indication: Pain following fall. Comparison: None 3 view right ankle demonstrates osteopenia, small spurring tip lateral malleolus, and mild soft tissue swelling. No other bony, articular, or soft tissue abnormalities.
== END 2024-06-07 23:15 | disposition home or self-care (01) ==
LOC: ED 20:27
DX: Z04.3 Encounter for examination and observation following other accident (principal); M25.551 Pain in right hip; M25.561 Pain in right knee; M25.571 Pain in right ankle and joints of right foot; E78.5 Hyperlipidemia, unspecified; I10 Essential (primary) hypertension; Z79.02 Long term (current) use of antithrombotics/antiplatelets; Z79.899 Other long term (current) drug therapy; Z72.0 Tobacco use
CPT/HCPCS: 73502; 73562; 73610; 99283; 99284

== ENCOUNTER 2024-06-09 07:55 | Observation (INO) | payer MEDICARE, OTHER ==
--- NOTE | 2024-06-09 08:30 | ERPHSYRPT ---
- History of Present Illness Time Seen by Provider: 06/09/24 08:01 Source: patient, EMS Exam Limitations: other Patient Subjective Stated Complaint: Patient c/o right lower leg pain. Reports unable to bear weight on it. States that she fell on Monday and had x-rays completed that were negative for fractures. Instructed to return to ER if the pain becomes worse. Triage Nursing Assessment: Patient arrived by ambulance. She is alert and oriented. Some soft tissue swelling noted to right foot and ankle. No skin alterations noted to area of reported pain. Patient denies pain in hip area. Pain seems to be isolated to patient's antoine area during the assessment. Physician History: 78 years old female with some element of dementia who had a ground-level fall 2 days ago, was evaluated in this ER with negative x-rays is brought in the ER again because of patient's inability to bear weight on the right lower extremity. Patient is complaining of pain all over her especially in the right lower leg and right hip area and also complaining of pain in the knee. Patient has since not a good historian and is unable to pinpoint exactly what is hurting the most. Family reports patient lives alone and she cannot get around because of her inability to weight-bear. Does not have any new fall. Has history of broken right ankle multiple times in the past with some swelling of right foot. Allergies/Adverse Reactions: amlodipine Allergy (Mild, Verified 06/09/24 08:03) Opioids - Morphine Analogues Adverse Reaction (Intermediate, Verified 06/09/24 08:03) CAUSES SEVERE CONFUSION / DELIRIUM Opioids-Methadone and Related Adverse Reaction (Intermediate, Verified 06/09/24 08:03) CAUSES SEVERE CONFUSION / DELIRIUM Home Medications: Aspirin 81 gm Chew [Baby Aspirin 81 mg Chew] 1 tab PO DAILY 05/05/23 [History] Clopidogrel Bisulfate [PLAVIX Tablet] 1 tab PO DAILY 05/05/23 [History] Famotidine 20 mg [Pepcid 20 MG] 1 tab PO DAILY 05/05/23 [History] Metoprolol Succinate 50 mg [Toprol Xl 50 MG] 0.5 tab PO DAILY 05/05/23 [History] Spironolactone 25 mg [Aldactone 25 MG] 1 tab PO DAILY 05/05/23 [History] Hx Tetanus, Diphtheria Vaccination/Date Given: Yes Hx Influenza Vaccination/Date Given: Yes Hx Pneumococcal Vaccination/Date Given: Yes Immunizations Up to Date: Yes Travel Risk - International Travel Have you traveled outside of the country in past 3 weeks: No - Emerging Infectious Disease Are you exhibiting symptoms associated with any current EIDs: No - Review of Systems Constitutional: No Symptoms Ears, Nose, & Throat: No Symptoms Respiratory: No Symptoms Cardiac: No Symptoms Genitourinary Symptoms: No Symptoms Musculoskeletal: Arthralgias, Fall, Joint Pain Skin: No Symptoms Neurological: No Symptoms Hematologic/Lymphatic: No Symptoms - Past Medical History Pertinent Past Medical History: Yes Neurological History: Stroke ENT History: Cataracts Cardiac History: High Cholesterol, Hypertension Respiratory History: Other Endocrine Medical History: No Pertinent History Musculoskeletal History: Osteoarthritis GI Medical History: GERD History: No Pertinent History Psycho-Social History: No Pertinent History Female Reproductive Disorders: No Pertinent History - Past Surgical History Past Surgical History: Yes Neuro Surgical History: No Pertinent History Cardiac: CABG, Cardiac Catheterization, Other Respiratory: No Pertinent History Gastrointestinal: No Pertinent History Genitourinary: No Pertinent History Musculoskeletal: No Pertinent History Female Surgical History: No Pertinent History Other Surgical History: Triple A repair. Carotid - Social History Smoking Status: Current every day smoker Exposure to second hand smoke: No Drug Use: none - Social Determinants of Health Will the patient participate in the screening: Yes Do you worry about a steady place to live?: No Do you have any problems with any of the following?: No known problems In the past 12 months,have you had to go without utilities?: No Transportation Issues: No Has anyone in your support network made you feel unsafe?: No Have you or anyone in your house had to go w/o enough food: No - Nursing Vital Signs Nursing Vital Signs: Initial Vital Signs Pulse Rate 109 H 06/09/24 08:00 Respiratory Rate 18 06/09/24 08:00 Blood Pressure 154/82 06/09/24 08:00 O2 Sat by Pulse Oximetry 96 06/09/24 08:00 Pain Scale Pain Intensity 5 - Physical Exam General Appearance: no apparent distress Eyes, Ears, Nose, Throat Exam: normal ENT inspection Neck Exam: normal inspection Cardiovascular/Respiratory Exam: normal breath sounds, regular rate/rhythm Gastrointestinal/Abdominal Exam: non-tender, soft Back Exam: normal inspection Hips Exam: right: bone tenderness, limited range of motion, pain, soft tissue tenderness, left: non-tender, normal inspection, normal range of motion Legs Exam: right leg: bone tenderness, pain, soft tissue tenderness, swelling Knees Exam: right knee: bone tenderness, pain Ankle Exam: right ankle: bone tenderness, limited range of motion, pain, soft tissue tenderness, swelling Neuro/Tendon Exam: normal sensation, normal motor functions Mental Status Exam: alert, oriented x 3, cooperative Skin Exam: normal color SpO2 Interpretation: normal SpO2: 96 O2 Delivery: Room Air Ordered Tests: Active Orders 24 hr Category Date Time Status LOWER EXTREMITY WO CONTRAST [CT] Stat Exams 06/09/24 08:25 Completed CBC W DIFF Stat Lab 06/09/24 11:30 Completed CMP Stat Lab 06/09/24 11:30 Completed UA W/RFX UR CULTURE Stat Lab 06/09/24 11:18 Ordered Medication Summary Discontinued Medications Generic Name Dose Route Start Last Admin Trade Name Freq PRN Reason Stop Dose Admin Acetaminophen 1,000 mg 06/09/24 10:45 06/09/24 10:47 Acetaminophen 500 Mg Tablet PO 06/09/24 10:46 1,000 mg STAT STA Administration Acetaminophen Confirm 06/09/24 10:46 Acetaminophen 500 Mg Tablet Administered 06/09/24 10:47 Dose 1,000 mg .ROUTE .[facility] ONE Lab/Rad Data: Laboratory Result Diagrams 06/09/24 11:30 06/09/24 11:30 Laboratory Results 06/09/24 06/09/24 Range/Units 11:30 11:30 WBC 9.9 (3.98-10.04) x10^3/uL RBC 4.25 (3.93-5.22) x10^6/uL Hgb 12.7 (11.2-15.7) g/dL Hct 39.0 (34.1-44.9) % MCV 91.8 (79.4-94.8) fL MCH 29.9 (25.6-32.2) pg MCHC 32.6 (32.2-35.5) g/dL RDW 13.4 (11.7-14.4) % Plt Count 287 (182-369) x10^3/uL MPV 10.2 (9.4-12.3) fL Gran % 78.4 H (34.0-71.1) % Immature Gran % (Auto) 0.3 (0.001-0.429) % Nucleat RBC Rel Count 0.0 (0.00-0.2) % Eos # (Auto) 0.11 (0.04-0.36) x10^3/uL Immature Gran # (Auto) 0.03 (0.001-0.031) x10^3u/L Absolute Lymphs (auto) 1.34 (1.18-3.74) x10^3/uL Absolute Monos (auto) 0.61 (0.24-0.86) x10^3/uL Absolute Nucleated RBC 0.00 (0.00-0.012) x10^3u/L Lymphocytes % 13.5 L (19.3-51.7) % Monocytes % 6.1 (4.7-12.5) % Eosinophils % 1.1 (0.7-5.8) % Basophils % 0.6 (0.1-1.2) % Absolute Granulocytes 7.79 H (1.56-6.13) x10^3/uL Basophils # 0.06 (0.01-0.08) x10^3/uL Sodium 139 (135-145) mmol/L Potassium 4.9 (3.5-5.1) mmol/L Chloride 104 (98-107) mmol/L Carbon Dioxide 24 (22-30) mmol/L Anion Gap 16.4 H (5-15) MEQ/L BUN 14 (7-17) mg/dL Creatinine 0.81 (0.52-1.04) mg/dL Estimated GFR 73.3 ML/MIN Glucose 165 H (74-106) mg/dL Calcium 9.0 (8.4-10.2) mg/dL Total Bilirubin 0.70 (0.2-1.3) mg/dL AST 29 (14-36) U/L ALT 14 (0-35) U/L Alkaline Phosphatase 29 L (38-126) U/L Serum Total Protein 7.5 (6.3-8.2) g/dL Albumin 4.3 (3.5-5.0) g/dL - Progress Progress: improved, pain not gone completely Progress Note: 06/09/24 12:07 78 years old is evaluated in the ER for right lower extremity pain after a ground-level fall 2 days ago with pain in the hip knee and ankle. Patient is not a good historian and is not able to exactly specify where she is hurting the most. She is given Tylenol for symptomatic relief. I have obtained CT right lower extremity which showed no fracture in the ankle and knee but questionable lucency in the right superior acetabular area which could be a fracture versus separate osteophyte. MRI is recommended. I have discussed with Dr. Shelton, recommended admission to hospitalist service and MRI tomorrow and orthopedics would be a consult. I have shared the results of workup with patient and family and plan of admission which they understand and agree. Discussed with hospitalist Dr. Baeza, reviewed history, workup and agreed with admission. Complexity of problems addressed: Moderate acute Complexity of data reviewed/analyzed: Moderate Risk of complication: Moderate Discussed with Dr.: Other ( Hospitalist and Dr. Shelton orthopedics) Will see patient in: hospital (observation) Counseled pt/family regarding: lab results, diagnosis, need for follow-up, rad results Medical Desision Making - Independent Historian Additional History obtained from: Child, Manufacturing Engineer/EMT - Discussion of managment Care discussed with:: specialist (Dr. Shelton orthopedics and Dr. Baeza hospitalist) Reviewed:: Test results Agreed on:: Treatment plan, place in obs Will see patient: in hospital - Diagnostic Testing Diagnostic test were ordered, analyzed, and reviewed by me: Yes Radiological Interpretation: Reviewed by me, Teleradiologist Report - Risk of complications The pt has a mod risk of morbidity or mortality based on: Need for prescription drug management The pt has a high risk of morbidity or mortality based on: Decision regarding hospitilization or escalation of hosp level of care - Departure Departure Disposition: Observation Clinical Impression: Right acetabular fracture Condition: Stable Critical Care Time: No Referrals: JOHN BRITT [Primary Care Provider, UNKNOWN] - Follow up/PCP as directed
--- NOTE | 2024-06-09 09:46 | XRAY ---
CLINICAL HISTORY: fall, right LE PAIN COMPARISON: None. TECHNIQUE: Thin axial images non-contrast of the right lower extremity were obtained along with coronal and sagittal reconstructions. One of the following dose reduction techniques were utilized for this exam: Automated exposure control, adjustment of the mA and/or kV according to patient size, and use of iterative reconstruction. FINDINGS: Bones: Questionable lucent line noted in the superior right actebulum could be detached osteophyte rather than avulsion fracture; MRI is advised. Normal alignment of the femur, tibia, fibula, and patella. No dislocations. No lytic or sclerotic lesions. Diffuse osteopenia Joint Space: Degenerative changes of the tibiotalar joint with subchondral degenerative cysts Tricompartmental knee joint osteoarthritic changes in the form of narrowing of joint space and subchondral sclerosis No evidence of loose bodies or intra-articular fragments. Mild knee joint effusion. Muscles: Moderate fatty atrophy of muscles around the leg. Tendons: Normal appearance of the patellar tendon, quadriceps tendon, and other tendons around the knee. No tendinopathy or tears. Soft Tissues: Subcutaneous soft tissue edema noted around the lateral aspect of the lower leg and ankle joint and around the dorsal aspect of the foot Bursae: No evidence of bursitis or abnormal fluid collections in the prepatellar, infrapatellar, or other bursae. The scanned abdomen shows infrarenal aortic aneurysm with an endovascular aortic stent extending to the iliac arteries. Colonic diverticuli. IMPRESSION: 1. Questionable lucent line noted in the superior right actebulum could be detached osteophyte rather than avulsion fracture, MRI is advised. 2. Subcutaneous soft tissue edema noted around the lateral aspect of the lower leg and ankle joint and around the dorsal aspect of the foot 3. Diffuse osteopenia. 4. Moderate fatty atrophy of muscles around the leg. 5. Mild knee joint effusion. 6. Degenerative changes of the tibiotalar and knee joints. Electronically Signed by: Letha Hugo MD. (06/09/2024 09:42:30 EDT)
[2024-06-09] MEDS ORDERED: TYLENOL EXTRA STRENGTH 500 MG ONE (10:46)
[2024-06-09] MEDS: TYLENOL EXTRA STRENGTH 500 MG PO STA (10:47)
[2024-06-09 11:41] LABS: Absolute Neutrophil Ct (ANC) 7.79 x10^3/uL (1.56-6.13); BASOPHIL % 0.6 % (0.1-1.2); Basophil (Absolute #) 0.06 x10^3/uL (0.01-0.08); Eosinophil % 1.1 % (0.7-5.8); Eosinophil (Absolute #) 0.11 x10^3/uL (0.04-0.36); Hemoglobin 12.7 g/dL (11.2-15.7); IMMATURE GRAN # 0.03 x10^3u/L (0.001-0.031); IMMATURE GRAN % 0.3 % (0.001-0.429); Lymphocyte (Absolute #) 1.34 x10^3/uL (1.18-3.74); Lymphocytes % 13.5 % (19.3-51.7); Mean Cell Volume 91.8 fL (79.4-94.8); Mean Corpuscular Hemoglobin 29.9 pg (25.6-32.2); Mean Corpuscular Hgb Concent. 32.6 g/dL (32.2-35.5); Mean Platelet Volume 10.2 fL (9.4-12.3); Monocyte (Absolute #) 0.61 x10^3/uL (0.24-0.86); Monocytes % 6.1 % (4.7-12.5); Neutrophil % 78.4 % (34.0-71.1); Platelet Count 287 x10^3/uL (182-369); Red Blood Count 4.25 x10^6/uL (3.93-5.22); Red Cell Distribution Width 13.4 % (11.7-14.4); White Blood Count 9.9 x10^3/uL (3.98-10.04)
[2024-06-09 11:58] LABS: ALBUMIN 4.3 g/dL (3.5-5.0); ANION GAP 16.4 MEQ/L (5-15); BILIRUBIN,TOTAL 0.7 mg/dL (0.2-1.3); Creatinine 1 0.81 mg/dL (0.52-1.04); EST GLOMERULAR FILTRATION RATE 73.3 ML/MIN; Potassium 4.9 mmol/L (3.5-5.1); Total Protein 7.5 g/dL (6.3-8.2)
--- NOTE | 2024-06-09 12:47 | PCM.HP ---
History of Present Illness - Chief Complaint Chief Complaint: Right acetabular fracture Date: 06/09/24 History of Present Illness: is a 78 year old female with a pmhx of coronary artery disease, stroke, AAA repair, smoker, hypertension, hyperlipidemia, GERD, who presented 06/09/24 with persistent pain in the right lower extremity, particularly in the right hip and knee, following a ground-level fall that occurred two days ago when she tripped on the threshold leading into her house. She was evaluated at [facility] with an initial negative x-ray evaluation. She returns today after being unable to bear weight on the right leg, with continued pain. Family reports she has a history of multiple right ankle fractures and chronic swelling in her right foot. Patient states that pain is currently tolerable after receiving Tylenol in ED. She reports allergy to most opioids. Pain is dull/achy and 5/10 on numerical pain scale. Patient would like to stick to Tylenol for now with lidocaine patches, hot/cold therapy. Upon arrival patient with mild tachycardia and hypertension, but vitals are otherwise stable. A CT scan of the right lower extremity revealed no fractures in the ankle or knee but noted a questionable lucency in the superior acetabular region, which may represent either a fracture or an osteophyte. MRI is recommended to further assess the right hip/pelvis. Labs are unremarkable. She was given Tylenol for pain management. A hospitalist admission was recommended after consultation with Dr. Shelton, with plans for MRI and orthopedic consultation for a possible acetabular fracture. - Review of Systems Constitutional: No Symptoms Eyes: No Symptoms Ears, Nose, & Throat: No Symptoms Respiratory: No Symptoms Cardiac: No Symptoms Abdominal/Gastrointestinal: No Symptoms Genitourinary Symptoms: No Symptoms Musculoskeletal: Joint Pain (right hip, knee), Joint Swelling (right knee) Skin: No Symptoms Neurological: No Symptoms Psychological: No Symptoms Endocrine: No Symptoms Hematologic/Lymphatic: No Symptoms Medications & Allergies Home Medications: Home Medication List Aspirin 81 gm Chew [Baby Aspirin 81 mg Chew] 81 mg PO DAILY 05/05/23 [History Confirmed 06/09/24] Clopidogrel Bisulfate [PLAVIX Tablet] 75 mg PO DAILY 05/05/23 [History Confirmed 06/09/24] Famotidine 20 mg [Pepcid 20 MG] 20 mg PO DAILY 05/05/23 [History Confirmed 06/09/24] Metoprolol Succinate 50 mg [Toprol Xl 50 MG] 25 mg PO DAILY 05/05/23 [History Confirmed 06/09/24] Spironolactone 25 mg [Aldactone 25 MG] 25 mg PO DAILY 05/05/23 [History Confirmed 06/09/24] Allergies/Adverse Reactions: Allergies Allergy/AdvReac Type Severity Reaction Status Date / Time amlodipine Allergy Mild Verified 06/09/24 12:43 Opioids - Morphine Analogues AdvReac Intermediate Verified 06/09/24 12:43 Opioids-Methadone and Related AdvReac Intermediate Verified 06/09/24 12:43 - Past Medical History Past Medical History: Yes Neurological History: Stroke ENT History: Cataracts Cardiac History: High Cholesterol, Hypertension Respiratory History: Other Endocrine Medical History: No Pertinent History Musculoskelatal History: Osteoarthritis GI Medical History: GERD History: No Pertinent History Pyscho-Social History: No Pertinent History Reproductive Disorders: No Pertinent History Comment: SOB, SMOKER, OPEN HEART SURGERY. - Past Surgical History Past Surgical History: Yes Neuro Surgical History: No Pertinent History Cardiac History: CABG, Cardiac Catheterization, Other Respiratory Surgery: No Pertinent History GI Surgical History: No Pertinent History Genitourinary Surgical Hx: No Pertinent History Musculskeletal Surgical Hx: No Pertinent History Female Surgical History: No Pertinent History Other Surgical History: Triple A repair. Carotid Significant Family History: heart disease - Social History Smoking Status: Current every day smoker How long have you smoked: years Exposure to second hand smoke: No Alcohol: None Drug Use: none - Social Determinants of Health Will the patient participate in the screening: Yes Do you worry about a steady place to live?: No Do you have any problems with any of the following?: No known problems In the past 12 months,have you had to go without utilities?: No Have you or anyone in your house had to go without enough: No Transportation Issues: No Has anyone in your support network made you feel unsafe?: No Does the patient want assistance with any of the above?: No - Physical Exam Vital Signs: Vital Signs - 24 hr Pulse Resp BP Pulse Ox 06/09/24 12:12 96 06/09/24 12:00 154/73 06/09/24 11:30 98 H 160/73 95 06/09/24 11:00 100 H 154/71 96 04/20/25 10:30 169/77 96 06/09/24 10:00 103 H 152/77 97 06/09/24 09:30 100 H 151/80 96 06/09/24 09:00 96 H 18 151/74 95 06/09/24 08:30 100 H 18 147/72 95 06/09/24 08:00 109 H 18 154/82 96 General Appearance: no apparent distress Neurologic Exam: alert, oriented x 3, cooperative Eye Exam: PERRL/EOMI Ears, Nose, Throat Exam: normal ENT inspection Neck Exam: normal inspection Respiratory Exam: normal breath sounds, lungs clear Cardiovascular Exam: regular rate/rhythm, normal heart sounds Pelvic Exam: not done Rectal Exam: deferred Back Exam: normal inspection Extremity Exam: other (BLE edema 1-2+ Right knee edema) Skin Exam: normal color Results - Labs Lab/Micro Results: Lab Results-Last 24 Hours 06/09/24 06/09/24 Range/Units 11:30 11:30 WBC 9.9 (3.98-10.04) x10^3/uL RBC 4.25 (3.93-5.22) x10^6/uL Hgb 12.7 (11.2-15.7) g/dL Hct 39.0 (34.1-44.9) % MCV 91.8 (79.4-94.8) fL MCH 29.9 (25.6-32.2) pg MCHC 32.6 (32.2-35.5) g/dL RDW 13.4 (11.7-14.4) % Plt Count 287 (182-369) x10^3/uL MPV 10.2 (9.4-12.3) fL Gran % 78.4 H (34.0-71.1) % Immature Gran % (Auto) 0.3 (0.001-0.429) % Nucleat RBC Rel Count 0.0 (0.00-0.2) % Eos # (Auto) 0.11 (0.04-0.36) x10^3/uL Immature Gran # (Auto) 0.03 (0.001-0.031) x10^3u/L Absolute Lymphs (auto) 1.34 (1.18-3.74) x10^3/uL Absolute Monos (auto) 0.61 (0.24-0.86) x10^3/uL Absolute Nucleated RBC 0.00 (0.00-0.012) x10^3u/L Lymphocytes % 13.5 L (19.3-51.7) % Monocytes % 6.1 (4.7-12.5) % Eosinophils % 1.1 (0.7-5.8) % Basophils % 0.6 (0.1-1.2) % Absolute Granulocytes 7.79 H (1.56-6.13) x10^3/uL Basophils # 0.06 (0.01-0.08) x10^3/uL Sodium 139 (135-145) mmol/L Potassium 4.9 (3.5-5.1) mmol/L Chloride 104 (98-107) mmol/L Carbon Dioxide 24 (22-30) mmol/L Anion Gap 16.4 H (5-15) MEQ/L BUN 14 (7-17) mg/dL Creatinine 0.81 (0.52-1.04) mg/dL Estimated GFR 73.3 ML/MIN Glucose 165 H (74-106) mg/dL Calcium 9.0 (8.4-10.2) mg/dL Total Bilirubin 0.70 (0.2-1.3) mg/dL AST 29 (14-36) U/L ALT 14 (0-35) U/L Alkaline Phosphatase 29 L (38-126) U/L Serum Total Protein 7.5 (6.3-8.2) g/dL Albumin 4.3 (3.5-5.0) g/dL - Radiology Impressions Radiology Exams & Impressions: Radiology Procedures Category Date Time Status LOWER EXTREMITY WO CONTRAST [CT] Stat Exams 06/09/24 08:25 Completed Assessment/Plan (1) Right acetabular fracture Current Visit: Yes Status: Acute Assessment & Plan: -CT scan of the right lower extremity revealed no fractures in the ankle or knee but noted a questionable lucency in the superior acetabular region, which may represent either a fracture or an osteophyte -Dr. Shelton contacted in ED - plan for MRI of the right hip/pelvis to evaluate for a possible occult acetabular fracture or osteophyte -Ortho consult -Pain management - patient with allergies to opiods - will continue tylenol, hot/cold therapy, topical lidocaine patches Code(s): S32.401A - UNSP FRACTURE OF RIGHT ACETABULUM, INIT FOR CLOS FX (2) CAD (coronary artery disease) Current Visit: Yes Status: Acute Assessment & Plan: -continue home meds Code(s): I25.10 - ATHSCL HEART DISEASE OF [place] CORONARY ARTERY W/O ANG PCTRS (3) GERD (gastroesophageal reflux disease) Current Visit: Yes Status: Acute Assessment & Plan: -continue famotidine Code(s): K21.9 - GASTRO-ESOPHAGEAL REFLUX DISEASE WITHOUT ESOPHAGITIS (4) HTN (hypertension) Current Visit: No Status: Chronic Assessment & Plan: -continue home meds Code(s): I10 - ESSENTIAL (PRIMARY) HYPERTENSION (5) Hyperlipidemia Current Visit: No Status: Chronic Assessment & Plan: -continue home meds Code(s): E78.5 - HYPERLIPIDEMIA, UNSPECIFIED (6) History of fall Current Visit: Yes Status: Acute Assessment & Plan: -PT/OT eval Code(s): Z91.81 - HISTORY OF FALLING (7) History of stroke Current Visit: Yes Status: Acute Assessment & Plan: -continue ASA and plavix Code(s): Z86.73 - PRSNL HX OF TIA (TIA), AND CEREB INFRC W/O RESID DEFICITS (8) Smoker Current Visit: Yes Status: Acute Assessment & Plan: -Advised cessation - patient smokes about 1/2 ppd since she was 15 years old- not ready to quit -Will provide resources for smoking cessation -Nicotine patch VTE: SCD - hold until ortho consult completed Dispo: Observation Code status: Full code Code(s): F17.200 - NICOTINE DEPENDENCE, UNSPECIFIED, UNCOMPLICATED Telemedicine Encounter - Telemedicine Encounter Telemedicine Encounter: "The entirety of this encounter was performed via Telemedicine" This visit was performed using real-time audio and video connection between my location and thepatients locationwith the assistance of a surrogateat the patients location. Written or verbal consent was obtained from the patient/guardian to perform this [facility]. Any patient questions regarding the telemedicine interaction were answered.
[2024-06-09] MEDS ORDERED: Zofran 4 MG/2 ML VIAL IV PRN (13:21)
[2024-06-09] MEDS ORDERED: Docusate Sodium 100 MG PO PRN (13:21)
[2024-06-09] MEDS ORDERED: Lidoderm Patch 5% TOP PRN (13:21)
[2024-06-09 13:39] LABS: INR 0.94 (0.8-3.0); PROTIME 10.3 SECONDS (9.4-12.5); PTT 24.7 SECONDS (25.1-36.5)
[2024-06-09] MEDS: Aldactone 25 MG PO SCH (13:59)
[2024-06-09] MEDS: Toprol Xl 50 MG PO SCH (13:59)
[2024-06-09] MEDS: Nicoderm CQ 21 MG TOP SCH (14:00)
[2024-06-09 18:11] LABS: Appearance Cloudy (Clear); Bacteria Many /HPF (None Seen); Bilirubin Negative (Negative); Blood Trace (Negative); Epithelial Cells None Seen /HPF (None Seen); Glucose, Urine Negative (Negative); Hyaline Casts NONE SEEN /LPF (0-2); Ketones Trace (Negative); Leukocyte Esterase Moderate (Negative); Nitrite Negative (Negative); Protein,Urine Dip 30 (Negative); RBC 0-2 /HPF (0-5); Specific Gravity 1.015 (1.005-1.030); Urobilinogen 0.2 mg/dL (0.2)
[2024-06-09] MEDS: TYLENOL 325 MG PO PRN (20:08)
[2024-06-09] MEDS: ROCEPHIN 1 GM / 100 ML NaCl 1 GM/100 ML IVPB IV SCH (21:08)
[2024-06-10 05:52] LABS: Absolute Neutrophil Ct (ANC) 5.23 x10^3/uL (1.56-6.13); BASOPHIL % 0.8 % (0.1-1.2); Basophil (Absolute #) 0.06 x10^3/uL (0.01-0.08); Eosinophil % 3.7 % (0.7-5.8); Eosinophil (Absolute #) 0.28 x10^3/uL (0.04-0.36); Hematocrit 38.3 % (34.1-44.9); Hemoglobin 12.3 g/dL (11.2-15.7); IMMATURE GRAN # 0.04 x10^3u/L (0.001-0.031); IMMATURE GRAN % 0.5 % (0.001-0.429); Lymphocyte (Absolute #) 1.44 x10^3/uL (1.18-3.74); Lymphocytes % 18.8 % (19.3-51.7); Mean Corpuscular Hemoglobin 29.9 pg (25.6-32.2); Mean Corpuscular Hgb Concent. 32.1 g/dL (32.2-35.5); Mean Platelet Volume 10.7 fL (9.4-12.3); Monocytes % 7.8 % (4.7-12.5); Neutrophil % 68.4 % (34.0-71.1); Platelet Count 297 x10^3/uL (182-369); Red Blood Count 4.12 x10^6/uL (3.93-5.22); Red Cell Distribution Width 13.5 % (11.7-14.4); White Blood Count 7.7 x10^3/uL (3.98-10.04)
[2024-06-10 06:40] LABS: ALBUMIN 3.9 g/dL (3.5-5.0); ANION GAP 14.4 MEQ/L (5-15); BILIRUBIN,TOTAL 0.5 mg/dL (0.2-1.3); Calcium 8.9 mg/dL (8.4-10.2); Creatinine 1 0.96 mg/dL (0.52-1.04); EST GLOMERULAR FILTRATION RATE 59.8 ML/MIN; Potassium 4.1 mmol/L (3.5-5.1); Total Protein 6.9 g/dL (6.3-8.2)
[2024-06-10] MEDS ORDERED: PLAVIX Tablet PO SCH (10:00)
[2024-06-10] MEDS ORDERED: BABY ASPIRIN 81 MG CHEW PO SCH (10:00)
[2024-06-10] MEDS: Pepcid 20 MG PO SCH (10:25)
--- NOTE | 2024-06-10 11:31 | PCM.NOTE ---
Date and Time: 06/10/24 1125 Subjective Assessment: 06/10 is a 78 year old female with a pmhx of coronary artery disease, stroke, AAA repair, smoker, hypertension, hyperlipidemia, and GERD. She presented 06/09/24 with persistent pain in the right lower extremity, particularly in the right hip and knee, following a ground-level fall that occurred two days ago when she tripped on the threshold leading into her house. She was evaluated at [facility] following with an initial negative x-ray evaluation. She returns today after being unable to bear weight on the right leg, with continued pain. Family reports she has a history of multiple right ankle fractures and chronic swelling in her right foot. Patient states that pain is currently tolerable after receiving Tylenol in ED. She reports allergy to most opioids. Pain is dull/achy and 2/10 on numerical pain scale. Patient would like to stick to Tylenol for now with lidocaine patches, hot/cold therapy. Upon arrival patient with mild tachycardia and hypertension, but vitals are otherwise stable. A CT scan of the right lower extremity revealed no fractures in the ankle or knee but noted a questionable lucency in the superior acetabular region, which may represent either a fracture or an osteophyte. MRI is recommended to further assess the right hip/pelvis. Labs are unremarkable. She was given Tylenol for pain management. A hospitalist admission was recommended after consultation with Dr. Shelton, with plans for MRI and orthopedic consultation for a possible acetabular fracture. Pt's family would like her to go to a rehab facility. Pt did not do well with PT today. MRI pending. Case management to discuss options. UC gram negative and will continue ceftriaxone for UTI. - Review of Systems Constitutional: No Fever, No Chills Eyes: No Symptoms Ears, Nose, & Throat: No Symptoms Respiratory: No Cough, No Short Of Breath Cardiac: No Chest Pain, No Edema, No Syncope Abdominal/Gastrointestinal: No Abdominal Pain, No Nausea, No Vomiting, No Diarrhea Genitourinary Symptoms: No Dysuria Musculoskeletal: Joint Pain (RLE), No Back Pain, No Neck Pain Skin: No Rash Neurological: No Dizziness, No Focal Weakness, No Sensory Changes Psychological: No Symptoms Endocrine: No Symptoms Hematologic/Lymphatic: No Symptoms Immunological/Allergic: No Symptoms Objective Exam General Appearance: no apparent distress, alert Neurologic Exam: alert, oriented x 3, cooperative, normal mood/affect, nml cerebellar function, sensation nml, motor weakness, No motor deficits Skin Exam: normal color, warm, dry Eye Exam: PERRL, EOMI, eyes nml inspection Ears, Nose, Throat Exam: normal ENT inspection, pharynx normal, moist mucous membranes Neck Exam: normal inspection, non-tender, supple, full range of motion Respiratory Exam: normal breath sounds, lungs clear, No respiratory distress Cardiovascular Exam: regular rate/rhythm, normal heart sounds Gastrointestinal/Abdomen Exam: soft, No tenderness, No mass Extremity Exam: normal inspection, limited range of motion (RLE), tenderness Back Exam: normal inspection, normal range of motion, No CVA tenderness, No vertebral tenderness Pelvic Exam: deferred Rectal Exam: deferred Objective Data Vital Signs: Vital Signs - 24 hr Temp Pulse Resp BP BP Pulse Ox 06/10/24 10:31 87 179/75 06/10/24 07:42 98.5 F 74 16 168/73 93 L 06/10/24 04:00 98.1 F 72 20 157/69 93 L 06/09/24 23:19 97.6 F 78 17 156/68 94 L 06/09/24 20:00 97.2 F 77 18 185/76 93 L 06/09/24 16:00 97.6 F 93 H 16 149/67 93 L 06/09/24 12:52 97.3 F 94 H 18 161/80 96 06/09/24 12:12 96 06/09/24 12:00 154/73 06/09/24 11:30 98 H 160/73 95 Pain Assessment - Last Documented Pain Intensity 3 Pain Scale Used 0-10 Pain Scale Intake and Output: Intake & Output 06/07/24 06/08/24 06/09/24 06/10/24 11:59 11:59 11:59 11:59 Intake Total 926 Output Total 800 Balance 126 Weight 73.3 kg 73.5 kg Lab Results: Lab Results-Last 24 Hours 06/09/24 06/09/24 06/09/24 Range/Units 11:30 11:30 11:30 WBC 9.9 (3.98-10.04) x10^3/uL RBC 4.25 (3.93-5.22) x10^6/uL Hgb 12.7 (11.2-15.7) g/dL Hct 39.0 (34.1-44.9) % MCV 91.8 (79.4-94.8) fL MCH 29.9 (25.6-32.2) pg MCHC 32.6 (32.2-35.5) g/dL RDW 13.4 (11.7-14.4) % Plt Count 287 (182-369) x10^3/uL MPV 10.2 (9.4-12.3) fL Gran % 78.4 H (34.0-71.1) % Immature Gran % (Auto) 0.3 (0.001-0.429) % Nucleat RBC Rel Count 0.0 (0.00-0.2) % Eos # (Auto) 0.11 (0.04-0.36) x10^3/uL Immature Gran # (Auto) 0.03 (0.001-0.031) x10^3u/L Absolute Lymphs (auto) 1.34 (1.18-3.74) x10^3/uL Absolute Monos (auto) 0.61 (0.24-0.86) x10^3/uL Absolute Nucleated RBC 0.00 (0.00-0.012) x10^3u/L Lymphocytes % 13.5 L (19.3-51.7) % Monocytes % 6.1 (4.7-12.5) % Eosinophils % 1.1 (0.7-5.8) % Basophils % 0.6 (0.1-1.2) % Absolute Granulocytes 7.79 H (1.56-6.13) x10^3/uL Basophils # 0.06 (0.01-0.08) x10^3/uL PT 10.3 (9.4-12.5) SECONDS INR 0.94 (0.8-3.0) APTT 24.7 L (25.1-36.5) SECONDS Sodium 139 (135-145) mmol/L Potassium 4.9 (3.5-5.1) mmol/L Chloride 104 (98-107) mmol/L Carbon Dioxide 24 (22-30) mmol/L Anion Gap 16.4 H (5-15) MEQ/L BUN 14 (7-17) mg/dL Creatinine 0.81 (0.52-1.04) mg/dL Estimated GFR 73.3 ML/MIN Glucose 165 H (74-106) mg/dL Hemoglobin A1c (4.5-6.0) % Calcium 9.0 (8.4-10.2) mg/dL Total Bilirubin 0.70 (0.2-1.3) mg/dL AST 29 (14-36) U/L ALT 14 (0-35) U/L Alkaline Phosphatase 29 L (38-126) U/L Serum Total Protein 7.5 (6.3-8.2) g/dL Albumin 4.3 (3.5-5.0) g/dL Urine Color (Yellow) Urine Appearance (Clear) Urine pH (4.6-8.0) Ur Specific [place] (1.005-1.030) Urine Protein (Negative) Urine Glucose (UA) (Negative) mg/dL Urine Ketones (Negative) Urine Blood (Negative) Urine Nitrite (Negative) Urine Bilirubin (Negative) Urine Urobilinogen (0.2) mg/dL Ur Leukocyte Esterase (Negative) U Hyaline Cast (Auto) (0-2) /LPF Urine Microscopic RBC (0-5) /HPF Urine Microscopic WBC (0-5) /HPF Ur Epithelial Cells (None Seen) /HPF Urine Bacteria (None Seen) /HPF Urine Culture Reflexed (NO) 06/09/24 06/10/24 06/10/24 Range/Units 18:00 05:16 05:16 WBC 7.7 (3.98-10.04) x10^3/uL RBC 4.12 (3.93-5.22) x10^6/uL Hgb 12.3 (11.2-15.7) g/dL Hct 38.3 (34.1-44.9) % MCV 93.0 (79.4-94.8) fL MCH 29.9 (25.6-32.2) pg MCHC 32.1 L (32.2-35.5) g/dL RDW 13.5 (11.7-14.4) % Plt Count 297 (182-369) x10^3/uL MPV 10.7 (9.4-12.3) fL Gran % 68.4 (34.0-71.1) % Immature Gran % (Auto) 0.5 H (0.001-0.429) % Nucleat RBC Rel Count 0.0 (0.00-0.2) % Eos # (Auto) 0.28 (0.04-0.36) x10^3/uL Immature Gran # (Auto) 0.04 H (0.001-0.031) x10^3u/L Absolute Lymphs (auto) 1.44 (1.18-3.74) x10^3/uL Absolute Monos (auto) 0.60 (0.24-0.86) x10^3/uL Absolute Nucleated RBC 0.00 (0.00-0.012) x10^3u/L Lymphocytes % 18.8 L (19.3-51.7) % Monocytes % 7.8 (4.7-12.5) % Eosinophils % 3.7 (0.7-5.8) % Basophils % 0.8 (0.1-1.2) % Absolute Granulocytes 5.23 (1.56-6.13) x10^3/uL Basophils # 0.06 (0.01-0.08) x10^3/uL PT (9.4-12.5) SECONDS INR (0.8-3.0) APTT (25.1-36.5) SECONDS Sodium 138 (135-145) mmol/L Potassium 4.1 (3.5-5.1) mmol/L Chloride 103 (98-107) mmol/L Carbon Dioxide 25 (22-30) mmol/L Anion Gap 14.4 (5-15) MEQ/L BUN 17 (7-17) mg/dL Creatinine 0.96 (0.52-1.04) mg/dL Estimated GFR 59.8 ML/MIN Glucose 178 H (74-106) mg/dL Hemoglobin A1c (4.5-6.0) % Calcium 8.9 (8.4-10.2) mg/dL Total Bilirubin 0.50 (0.2-1.3) mg/dL AST 18 (14-36) U/L ALT 10 (0-35) U/L Alkaline Phosphatase 46 (38-126) U/L Serum Total Protein 6.9 (6.3-8.2) g/dL Albumin 3.9 (3.5-5.0) g/dL Urine Color Yellow (Yellow) Urine Appearance Cloudy A (Clear) Urine pH 7.0 (4.6-8.0) Ur Specific [place] 1.015 (1.005-1.030) Urine Protein 30 (Negative) Urine Glucose (UA) Negative (Negative) mg/dL Urine Ketones Trace A (Negative) Urine Blood Trace (Negative) Urine Nitrite Negative (Negative) Urine Bilirubin Negative (Negative) Urine Urobilinogen 0.2 (0.2) mg/dL Ur Leukocyte Esterase Moderate A (Negative) U Hyaline Cast (Auto) NONE SEEN (0-2) /LPF Urine Microscopic RBC 0-2 (0-5) /HPF Urine Microscopic WBC 11-20 A (0-5) /HPF Ur Epithelial Cells None Seen (None Seen) /HPF Urine Bacteria Many A (None Seen) /HPF Urine Culture Reflexed YES (NO) 06/10/24 Range/Units 05:16 WBC (3.98-10.04) x10^3/uL RBC (3.93-5.22) x10^6/uL Hgb (11.2-15.7) g/dL Hct (34.1-44.9) % MCV (79.4-94.8) fL MCH (25.6-32.2) pg MCHC (32.2-35.5) g/dL RDW (11.7-14.4) % Plt Count (182-369) x10^3/uL MPV (9.4-12.3) fL Gran % (34.0-71.1) % Immature Gran % (Auto) (0.001-0.429) % Nucleat RBC Rel Count (0.00-0.2) % Eos # (Auto) (0.04-0.36) x10^3/uL Immature Gran # (Auto) (0.001-0.031) x10^3u/L Absolute Lymphs (auto) (1.18-3.74) x10^3/uL Absolute Monos (auto) (0.24-0.86) x10^3/uL Absolute Nucleated RBC (0.00-0.012) x10^3u/L Lymphocytes % (19.3-51.7) % Monocytes % (4.7-12.5) % Eosinophils % (0.7-5.8) % Basophils % (0.1-1.2) % Absolute Granulocytes (1.56-6.13) x10^3/uL Basophils # (0.01-0.08) x10^3/uL PT (9.4-12.5) SECONDS INR (0.8-3.0) APTT (25.1-36.5) SECONDS Sodium (135-145) mmol/L Potassium (3.5-5.1) mmol/L Chloride (98-107) mmol/L Carbon Dioxide (22-30) mmol/L Anion Gap (5-15) MEQ/L BUN (7-17) mg/dL Creatinine (0.52-1.04) mg/dL Estimated GFR ML/MIN Glucose (74-106) mg/dL Hemoglobin A1c 7.40 H (4.5-6.0) % Calcium (8.4-10.2) mg/dL Total Bilirubin (0.2-1.3) mg/dL AST (14-36) U/L ALT (0-35) U/L Alkaline Phosphatase (38-126) U/L Serum Total Protein (6.3-8.2) g/dL Albumin (3.5-5.0) g/dL Urine Color (Yellow) Urine Appearance (Clear) Urine pH (4.6-8.0) Ur Specific [place] (1.005-1.030) Urine Protein (Negative) Urine Glucose (UA) (Negative) mg/dL Urine Ketones (Negative) Urine Blood (Negative) Urine Nitrite (Negative) Urine Bilirubin (Negative) Urine Urobilinogen (0.2) mg/dL Ur Leukocyte Esterase (Negative) U Hyaline Cast (Auto) (0-2) /LPF Urine Microscopic RBC (0-5) /HPF Urine Microscopic WBC (0-5) /HPF Ur Epithelial Cells (None Seen) /HPF Urine Bacteria (None Seen) /HPF Urine Culture Reflexed (NO) Radiology Exams: Radiology Procedures Category Date Time Status LOWER EXTREMITY WO CONTRAST [CT] Stat Exams 06/09/24 08:25 Completed MRI LOW EXT JOINT W/O CONTRAST [MRI] Routine Exams 06/10/24 08:00 Ordered Medications: Medications Generic Name Dose Route Start Last Admin Trade Name Freq PRN Reason Stop Dose Admin Acetaminophen 1,000 mg 06/09/24 13:21 06/09/24 20:08 Acetaminophen 325 Mg Tablet PO 975 mg Q6H PRN PRN Administration PAIN, FEVER, HEADACHE Docusate Sodium 100 mg 06/09/24 13:21 Docusate Sodium 100 Mg Capsule PO 07/09/24 13:20 BIDPRN PRN CONSTIPATION Famotidine 20 mg 06/10/24 10:00 06/10/24 10:25 Famotidine 20 Mg Tablet PO 07/10/24 09:59 20 mg DAILY RAMBO Administration Ceftriaxone Sodium 1 gm in 100 mls @ 200 mls/hr 06/09/24 21:00 06/09/24 21:08 Rocephin 1 Gm / 100 Ml Nacl IV 07/09/24 20:59 200 mls/hr Q24H RAMBO Administration Lidocaine 1 patch 06/09/24 13:21 Lidocaine Hcl 1 Patch Patch TOP 07/09/24 13:20 Q12H PRN PRN PAIN Metoprolol Succinate 25 mg 06/09/24 13:45 06/10/24 10:25 Metoprolol Succinate 50 Mg Tablet.Sa PO 07/09/24 13:44 25 mg DAILY RAMBO Administration Nicotine 21 mg 06/09/24 13:30 06/09/24 14:00 Nicotine 21 Mg/Patch Patch TOP 07/09/24 13:29 21 mg Q24H RAMBO Administration Ondansetron HCl 4 mg 06/09/24 13:21 Ondansetron Hcl 4 Mg/2 Ml Vial IV 07/09/24 13:20 Q6H PRN PRN NAUSEA/VOMITING Spironolactone 25 mg 06/09/24 13:45 06/10/24 10:25 Spironolactone 25 Mg Tablet PO 07/09/24 13:44 25 mg DAILY RAMBO Administration Discontinued Medications Generic Name Dose Route Start Last Admin Trade Name Freq PRN Reason Stop Dose Admin Acetaminophen 1,000 mg 06/09/24 10:45 06/09/24 10:47 Acetaminophen 500 Mg Tablet PO 06/09/24 10:46 1,000 mg STAT STA Administration Acetaminophen Confirm 06/09/24 10:46 Acetaminophen 500 Mg Tablet Administered 06/09/24 10:47 Dose 1,000 mg .ROUTE .STK-MED ONE Aspirin 81 mg 06/10/24 10:00 Aspirin 81 Mg Tab.Chew PO 07/10/24 09:59 DAILY RAMBO Clopidogrel Bisulfate 75 mg 06/10/24 10:00 Clopidogrel Bisulfate 75 Mg Tablet PO 07/10/24 09:59 DAILY RAMBO Multi-Disciplinary Progress Notes: Multi-Disciplinary Progress Notes 06/10/24 08:11 Occupational Therapy Note by Ronel (L#[id number])Grace OT reviewed chart and will hold evaluation at this time. Awaiting MRI results and if fracture present may undergo surgery. OT will continue to follow as appropriate. Initialized on 06/10/24 08:11 - END OF NOTE Assessment/Plan (1) Right acetabular fracture Current Visit: Yes Status: Acute Code(s): S32.401A - UNSP FRACTURE OF RIGHT ACETABULUM, INIT FOR CLOS FX (2) CAD (coronary artery disease) Current Visit: Yes Status: Acute Code(s): I25.10 - ATHSCL HEART DISEASE OF [place] CORONARY ARTERY W/O ANG PCTRS (3) GERD (gastroesophageal reflux disease) Current Visit: Yes Status: Acute Code(s): K21.9 - GASTRO-ESOPHAGEAL REFLUX DISEASE WITHOUT ESOPHAGITIS (4) HTN (hypertension) Current Visit: No Status: Chronic Code(s): I10 - ESSENTIAL (PRIMARY) HYPERTENSION (5) Hyperlipidemia Current Visit: No Status: Chronic Code(s): E78.5 - HYPERLIPIDEMIA, UNSPECIFIED (6) History of fall Current Visit: Yes Status: Acute Code(s): Z91.81 - HISTORY OF FALLING (7) History of stroke Current Visit: Yes Status: Acute Code(s): Z86.73 - PRSNL HX OF TIA (TIA), AND CEREB INFRC W/O RESID DEFICITS (8) Smoker Current Visit: Yes Status: Acute Assessment & Plan: (1) Right acetabular fracture Current Visit: Yes Status: Acute Assessment & Plan: - CT scan of the right lower extremity revealed no fractures in the ankle or knee but noted a questionable lucency in the superior acetabular region, which may represent either a fracture or an osteophyte - Dr. Shelton contacted in ED - plan for MRI of the right hip/pelvis to evaluate for a possible occult acetabular fracture or osteophyte - Ortho consult - Pain management - patient with allergies to opiods - will continue tylenol, hot/cold therapy, topical lidocaine patches - Son would like pt to go to rehab - PT eval Code(s): S32.401A - UNSP FRACTURE OF RIGHT ACETABULUM, INIT FOR CLOS FX (2) CAD (coronary artery disease) Current Visit: Yes Status: Acute Assessment & Plan: -Continue home meds Code(s): I25.10 - ATHSCL HEART DISEASE OF [place] CORONARY ARTERY W/O ANG PCTRS (3) GERD (gastroesophageal reflux disease) Current Visit: Yes Status: Acute Assessment & Plan: -Continue famotidine Code(s): K21.9 - GASTRO-ESOPHAGEAL REFLUX DISEASE WITHOUT ESOPHAGITIS (4) HTN (hypertension) Current Visit: No Status: Chronic Assessment & Plan: -Continue home meds Code(s): I10 - ESSENTIAL (PRIMARY) HYPERTENSION (5) Hyperlipidemia Current Visit: No Status: Chronic Assessment & Plan: -Continue home meds Code(s): E78.5 - HYPERLIPIDEMIA, UNSPECIFIED (6) History of fall Current Visit: Yes Status: Acute Assessment & Plan: -PT/OT eval Code(s): Z91.81 - HISTORY OF FALLING (7) History of stroke Current Visit: Yes Status: Acute Assessment & Plan: -continue ASA and plavix Code(s): Z86.73 - PRSNL HX OF TIA (TIA), AND CEREB INFRC W/O RESID DEFICITS (8) Smoker Current Visit: Yes Status: Acute Assessment & Plan: -Advised cessation - patient smokes about 1/2 ppd since she was 15 years old- not ready to quit -Will provide resources for smoking cessation -Nicotine patch Code(s): F17.200 - NICOTINE DEPENDENCE, UNSPECIFIED, UNCOMPLICATED (9) UTI (urinary tract infection) Current Visit: Yes Status: Acute Assessment & Plan: - UC gram negative sensitivity pending - Ceftriaxone VTE: SCD - hold until ortho consult completed Dispo: Observation Code status: Full code Next of KIN: SON Code(s): N39.0 - URINARY TRACT INFECTION, SITE NOT SPECIFIED
--- NOTE | 2024-06-10 14:33 | CONS ---
REASON FOR CONSULT: Right leg pain. HISTORY: This is an 78-year-old female who was admitted yesterday from the emergency room where she presented with right leg pain. She fell on 06/07 at home. States that she does use a walker sometimes at home and was not using it at the time when she fell. She could not get up, called for help, and was brought to the hospital for evaluation. She was seen on 06/07 in the ED and had x-rays done of her right hip, knee, and ankle. These x-rays were read as negative, and she was discharged home. Her son states that through the weekend she could not walk and so they brought her back on Monday, 06/09, for evaluation of leg pain. The doctor at that time ordered a CT of the entire right lower extremity finding no acute fracture; however, the CT was read as a possible fracture in the acetabular region involving a spur. Therefore, she was admitted for further evaluation and treatment. The patient tells me that she hurts mainly in her right knee and ankle. She denies hip pain. She states that she has fractured her ankle 3 times in the past and that this makes the fourth time, although there has not been a documented fracture. PAST MEDICAL HISTORY: Stroke, cataracts, high cholesterol, hypertension, osteoarthritis, GERD syndrome. PAST SURGICAL HISTORY: Coronary artery bypass graft, cardiac catheterization, aneurysm repair, carotid surgery. HOME MEDICATIONS: Aspirin, Plavix, Pepcid, Toprol, Aldactone. ALLERGIES: Amlodipine, opioids. SOCIAL HISTORY: Lives alone. PHYSICAL EXAMINATION: VITAL SIGNS: Pulse 109, respirations 18, BP 154/82, O2 saturation 96%. GENERAL: Semi-recumbent in bed. Awake, alert, oriented, and in no acute distress. EXTREMITIES: She can move her upper extremities without difficulty. She complains that her entire right leg hurts. Right leg revealed no swelling, bruising, or deformity. Right ankle exam reveals tenderness just to the lateral malleolus in the ligamentous region, no tenderness medially. She is mildly tender over the distal fibula. She tolerates passive inversion and eversion of the ankle. She is able to invert and pravin with grade 4 strength against resistance. Dorsiflexion and plantarflexion strength also 4/5. Skin color is normal throughout the right lower extremity. The tibia is nontender. Knee exam reveals mild tenderness on the lateral side of the knee. There is no effusion, no ligamentous instability. Varus and valgus stress are normal. Corey normal. She is able to do a straight leg raise, holding the leg off the bed on her own power without difficulty. She can then extend her heel into the bed, pushing downward with moderate force and no pain. Passive flexion of the hip and rotation elicit no pain in the hip area whatsoever, but she does complain of knee pain. She is mildly tender over the greater trochanter. Axial loading of the right hip elicits no pain. IMAGIN) Right ankle 06/07/2024: Report indicates osteopenia, small spurring at tip of lateral malleolus, and mild soft tissue swelling. 2) X-ray right hip 06/07: Report indicates osteopenia, mild degenerative change in both hips, mild scattered arteriosclerotic disease, incompletely visualized bilateral stents, surgical clips overlying the right hip. 3) X-ray right knee, 3 views, 06/07: Report indicates osteopenia, mild tricompartmental degenerative change, tiny nonspecific effusion, and mild scattered vascular calcification. No other bony, articular, or soft tissue abnormalities. 4) CT right lower extremity 06/09/2024: A) Questionable lucent line noted superior right acetabulum could be detached osteophyte rather than avulsion fracture. B) Subcutaneous soft tissue edema noted around lateral aspect of lower leg and ankle joint and around the dorsal aspect of the foot. C) Diffuse osteopenia. D) Moderate fatty atrophy of muscles around the leg. E) Mild knee joint effusion. F) Degenerative change of tibiotalar and knee joints. IMPRESSION: An 78-year-old female fell at home and now complains of right leg pain and inability to bear weight. Pain was poorly localized, although she seemed to emphasize the right knee and ankle. No fracture seen on x-ray. An MRI had been ordered of the hip based on reports from ER and nurse practitioner that patient had hip pain; however, exam reveals no focal hip pain that would suggest a fracture. Therefore, I do not think MRI is needed. I would recommend a short leg walking boot for the right lower extremity, physical therapy, weight bear as tolerated, consider swing bed.
--- NOTE | 2024-06-10 14:48 | XRAY ---
Indication: Right hip pain. Fracture. Axial and coronal MRI both hips performed using T1, T2, and STIR sequences. Additional T2 fat sat images obtained through right hip. Comparison: None Hips are bilaterally symmetric without abnormal effusion. No acute fracture, suspicious bony lesions, bony remodeling, or evidence for avascular necrosis. Surrounding soft tissues are negative for focal solid/cystic soft tissue mass or abnormal fluid collection. Visualized pelvic contents demonstrates incidental sigmoid diverticulosis. No focal pelvic solid/cystic mass or abnormal fluid collection. Impression: Negative MRI right hip. Incidental sigmoid diverticulosis.
[2024-06-11 04:32] LABS: Hematocrit 38.4 % (34.1-44.9); Hemoglobin 12.7 g/dL (11.2-15.7); Mean Cell Volume 90.1 fL (79.4-94.8); Mean Corpuscular Hemoglobin 29.8 pg (25.6-32.2); Mean Corpuscular Hgb Concent. 33.1 g/dL (32.2-35.5); Mean Platelet Volume 10.2 fL (9.4-12.3); Platelet Count 288 x10^3/uL (182-369); Red Blood Count 4.26 x10^6/uL (3.93-5.22); Red Cell Distribution Width 13.5 % (11.7-14.4); White Blood Count 8.3 x10^3/uL (3.98-10.04)
[2024-06-11 04:49] LABS: BILIRUBIN,TOTAL 0.5 mg/dL (0.2-1.3); Creatinine 1 0.9 mg/dL (0.52-1.04); EST GLOMERULAR FILTRATION RATE 64.6 ML/MIN; Potassium 4.2 mmol/L (3.5-5.1)
[2024-06-11 07:10] VITALS: RESP 17
--- NOTE | 2024-06-11 09:27 | PCM.NOTE ---
Date and Time: 06/11/24926 Subjective Assessment: Hospital day 3 Patient has no new complaints and states that her right leg is improving. She currently reports no pain. She has walking boot in place. She says that it is bulky but it helps her feel better Objective Exam General Appearance: no apparent distress Neurologic Exam: alert, oriented x 3 Skin Exam: normal color Extremity Exam: other Comments: Patient was evaluated sitting at bedside. She has a boot in place on the right ankle. There is no pain in the hip. She can flex and extend the right knee without difficulty. Boot was removed to examine the right ankle. She is still slightly tender over the lateral ligamentous complex but there Right knee exam shows no swelling, no deformity, no effusion. Varus and valgus ligament stability are normal. Objective Data Vital Signs: Vital Signs - 24 hr Temp Pulse Resp BP Pulse Ox 06/11/24 07:10 97.5 F 83 17 154/69 92 L 06/11/24 04:00 97.9 F 84 20 168/71 92 L 06/11/24 00:00 98.7 F 86 18 164/70 91 L 06/10/24 20:00 98.5 F 83 18 144/65 92 L 06/10/24 16:03 97.9 F 86 16 153/68 95 06/10/24 14:00 98.5 F 87 16 179/75 93 L 06/10/24 10:31 87 179/75 Pain Assessment - Last Documented Pain Intensity 2 Pain Scale Used 0-10 Pain Scale Intake and Output: Intake & Output 06/08/24 06/09/24 06/10/24 06/11/24 11:59 11:59 11:59 11:59 Intake Total 1406 840 Output Total 800 850 Balance 606 -10 Weight 73.3 kg 73.5 kg 74.1 kg Lab Results: Lab Results-Last 24 Hours 06/11/24 06/11/24 Range/Units 04:27 04:27 WBC 8.3 (3.98-10.04) x10^3/uL RBC 4.26 (3.93-5.22) x10^6/uL Hgb 12.7 (11.2-15.7) g/dL Hct 38.4 (34.1-44.9) % MCV 90.1 (79.4-94.8) fL MCH 29.8 (25.6-32.2) pg MCHC 33.1 (32.2-35.5) g/dL RDW 13.5 (11.7-14.4) % Plt Count 288 (182-369) x10^3/uL MPV 10.2 (9.4-12.3) fL Sodium 136 (135-145) mmol/L Potassium 4.2 (3.5-5.1) mmol/L Chloride 101 (98-107) mmol/L Carbon Dioxide 25 (22-30) mmol/L Anion Gap 14.0 (5-15) MEQ/L BUN 19 H (7-17) mg/dL Creatinine 0.90 (0.52-1.04) mg/dL Estimated GFR 64.6 ML/MIN Glucose 182 H (74-106) mg/dL Calcium 9.0 (8.4-10.2) mg/dL Total Bilirubin 0.50 (0.2-1.3) mg/dL AST 21 (14-36) U/L ALT 13 (0-35) U/L Alkaline Phosphatase 43 (38-126) U/L Serum Total Protein 7.0 (6.3-8.2) g/dL Albumin 4.0 (3.5-5.0) g/dL Radiology Exams: Radiology Procedures Category Date Time Status MRI LOW EXT JOINT W/O CONTRAST [MRI] Routine Exams 06/10/24 08:00 Completed Medications: Medications Generic Name Dose Route Start Last Admin Trade Name Freq PRN Reason Stop Dose Admin Acetaminophen 1,000 mg 06/09/24 13:21 06/11/24 09:14 Acetaminophen 325 Mg Tablet PO 1,000 mg Q6H PRN PRN Administration PAIN, FEVER, HEADACHE Docusate Sodium 100 mg 06/09/24 13:21 Docusate Sodium 100 Mg Capsule PO 07/09/24 13:20 BIDPRN PRN CONSTIPATION Famotidine 20 mg 06/10/24 10:00 06/11/24 09:12 Famotidine 20 Mg Tablet PO 07/10/24 09:59 20 mg DAILY RAMBO Administration Ceftriaxone Sodium 1 gm in 100 mls @ 200 mls/hr 06/09/24 21:00 06/10/24 21:10 Rocephin 1 Gm / 100 Ml Nacl IV 07/09/24 20:59 200 mls/hr Q24H RAMBO Administration Lidocaine 1 patch 06/09/24 13:21 Lidocaine Hcl 1 Patch Patch TOP 07/09/24 13:20 Q12H PRN PRN PAIN Metoprolol Succinate 25 mg 06/09/24 13:45 06/11/24 09:09 Metoprolol Succinate 50 Mg Tablet.Sa PO 07/09/24 13:44 25 mg DAILY RAMBO Administration Nicotine 21 mg 06/09/24 13:30 06/10/24 13:42 Nicotine 21 Mg/Patch Patch TOP 07/09/24 13:29 21 mg Q24H RAMBO Administration Ondansetron HCl 4 mg 06/09/24 13:21 Ondansetron Hcl 4 Mg/2 Ml Vial IV 07/09/24 13:20 Q6H PRN PRN NAUSEA/VOMITING Spironolactone 25 mg 06/09/24 13:45 06/11/24 09:11 Spironolactone 25 Mg Tablet PO 07/09/24 13:44 25 mg DAILY RAMBO Administration Discontinued Medications Generic Name Dose Route Start Last Admin Trade Name Freq PRN Reason Stop Dose Admin Acetaminophen 1,000 mg 06/09/24 10:45 06/09/24 10:47 Acetaminophen 500 Mg Tablet PO 06/09/24 10:46 1,000 mg STAT STA Administration Acetaminophen Confirm 06/09/24 10:46 Acetaminophen 500 Mg Tablet Administered 06/09/24 10:47 Dose 1,000 mg .ROUTE .STK-MED ONE Aspirin 81 mg 06/10/24 10:00 Aspirin 81 Mg Tab.Chew PO 07/10/24 09:59 DAILY RAMBO Clopidogrel Bisulfate 75 mg 06/10/24 10:00 Clopidogrel Bisulfate 75 Mg Tablet PO 07/10/24 09:59 DAILY RAMBO Assessment/Plan (1) History of fall Current Visit: Yes Status: Acute Assessment & Plan: 1. Right leg pain X-rays, CT, MRI have all been negative. She has no acute bony injury. Her symptoms are most significant at the right knee and ankle and these are improving. She is free to bear weight as tolerated, participate in physical therapy. Recommend that she wear the walking brace for 2 weeks and then discontinue. 2. Follow-up with orthopedics in 4 weeks. Code(s): Z91.81 - HISTORY OF FALLING
--- NOTE | 2024-06-11 10:17 | PCM.DS ---
Discharge Summary Date of Admission: 06/09/24 12:42 Date of Discharge: 06/11/24 Admitting Physician: MARIANNE FISHER MD Primary Care Provider: JOHN BRITT Allergies Allergies amlodipine Allergy (Mild, Verified 06/09/24 12:43) swelling Opioids - Morphine Analogues Adverse Reaction (Intermediate, Verified 06/09/24 12:43) CAUSES SEVERE CONFUSION / DELIRIUM Opioids-Methadone and Related Adverse Reaction (Intermediate, Verified 06/09/24 12:43) CAUSES SEVERE CONFUSION / DELIRIUM Hospital Summary - Hospital Course Hospital Course: 06/10 is a 78 year old female with a pmhx of coronary artery disease, stroke, AAA repair, smoker, hypertension, hyperlipidemia, and GERD. She presented 06/09/24 with persistent pain in the right lower extremity, particularly in the right hip and knee, following a ground-level fall that occurred two days ago when she tripped on the threshold leading into her house. She was evaluated at [facility], [facility] following with an initial negative x-ray evaluation. She returns today after being unable to bear weight on the right leg, with continued pain. Family reports she has a history of multiple right ankle fractures and chronic swelling in her right foot. Patient states that pain is currently tolerable after receiving Tylenol in ED. She reports allergy to most opioids. Pain is dull/achy and 2/10 on numerical pain scale. Patient would like to stick to Tylenol for now with lidocaine patches, hot/cold therapy. Upon arrival patient with mild tachycardia and hypertension, but vitals are otherwise stable. A CT scan of the right lower extremity revealed no fractures in the ankle or knee but noted a questionable lucency in the superior acetabular region, which may represent either a fracture or an osteophyte. MRI is recommended to further assess the right hip/pelvis. Labs are unremarkable. She was given Tylenol for pain management. A hospitalist admission was recommended after consultation with Dr. Shelton, with plans for MRI and orthopedic consultation for a possible acetabular fracture. Pt's family would like her to go to a rehab facility. Pt did not do well with PT today. MRI pending. Case management to discuss options. UC gram negative and will continue ceftriaxone for UTI. 06/11/24 Pt reports she feels much today today and has clear thinking. She is much more alert and understanding of the questions being asked. UC + for e-coli and pansensitive. MRI of RLE negative. Discussed pt case with ortho and he would like pt to wear a walking boot for R sprained ankle for 2 weeks. Per PT pt requiring a lot of prompting. Pt to go to rehab today private pay per family wishes, pt agreeable. Pt denies any further concerns at this time. - Vitals & Intake/Output Vital Signs: Vital Signs Temperature 97.5 F 06/11/24 07:10 Pulse Rate 83 06/11/24 07:10 Respiratory Rate 17 06/11/24 07:10 Blood Pressure 154/69 06/11/24 07:10 O2 Sat by Pulse Oximetry 92 L 06/11/24 07:10 Intake & Output: Intake & Output 06/08/24 06/09/24 06/10/24 06/11/24 11:59 11:59 11:59 11:59 Intake Total 1406 840 Output Total 800 850 Balance 606 -10 Weight 73.3 kg 73.5 kg 74.1 kg - Lab Result Diagrams: 06/11/24 04:27 06/11/24 04:27 Lab Results-Last 24 Hrs: Lab Results-Last 24 Hours 06/11/24 06/11/24 Range/Units 04:27 04:27 WBC 8.3 (3.98-10.04) x10^3/uL RBC 4.26 (3.93-5.22) x10^6/uL Hgb 12.7 (11.2-15.7) g/dL Hct 38.4 (34.1-44.9) % MCV 90.1 (79.4-94.8) fL MCH 29.8 (25.6-32.2) pg MCHC 33.1 (32.2-35.5) g/dL RDW 13.5 (11.7-14.4) % Plt Count 288 (182-369) x10^3/uL MPV 10.2 (9.4-12.3) fL Sodium 136 (135-145) mmol/L Potassium 4.2 (3.5-5.1) mmol/L Chloride 101 (98-107) mmol/L Carbon Dioxide 25 (22-30) mmol/L Anion Gap 14.0 (5-15) MEQ/L BUN 19 H (7-17) mg/dL Creatinine 0.90 (0.52-1.04) mg/dL Estimated GFR 64.6 ML/MIN Glucose 182 H (74-106) mg/dL Calcium 9.0 (8.4-10.2) mg/dL Total Bilirubin 0.50 (0.2-1.3) mg/dL AST 21 (14-36) U/L ALT 13 (0-35) U/L Alkaline Phosphatase 43 (38-126) U/L Serum Total Protein 7.0 (6.3-8.2) g/dL Albumin 4.0 (3.5-5.0) g/dL Micro Results-Entire Visit: Microbiology 06/09/24 18:00 Urine Culture - Final Clean Catch Midstream Escherichia Coli - Radiology Exams Ordered Rad Exams-Entire Visit: Radiology Procedures Category Date Time Status MRI LOW EXT JOINT W/O CONTRAST [MRI] Routine Exams 06/10/24 08:00 Completed - Procedures and Test Procedures and Tests throughout Hospitalization: Therapy Orders & Screens 06/09/24 13:21 PT Eval & Treat ( Order) ONCE Reason for Eval:: falls Diagnosis: Right acetabular fracture EKG STAT Comment: Diagnosis: Right acetabular fracture OT Eval and Treat (MD Order) ONCE Comment: Physician Instructions: Reason For Exam: Diagnosis: Right acetabular fracture Discharge Exam General Appearance: no apparent distress, alert Neurologic Exam: alert, oriented x 3, cooperative, normal mood/affect, nml cerebellar function, sensation nml, No motor deficits Eye Exam: PERRL, EOMI, eyes nml inspection Ears, Nose, Throat Exam: normal ENT inspection, pharynx normal, moist mucous membranes Neck Exam: normal inspection, non-tender, supple, full range of motion Respiratory Exam: normal breath sounds, lungs clear, No respiratory distress Cardiovascular Exam: regular rate/rhythm, normal heart sounds Gastrointestinal/Abdomen Exam: soft, No tenderness, No mass Pelvic Exam: deferred Rectal Exam: deferred Back Exam: normal inspection, normal range of motion, No CVA tenderness, No vertebral tenderness Extremity Exam: normal inspection, normal range of motion, tenderness (R ankle- walking boot in place) Skin Exam: normal color, warm, dry Final Diagnosis/Problem List - Final Discharge Diagnosis/Problem (1) Right acetabular fracture Current Visit: Yes Status: Acute Code(s): S32.401A - UNSP FRACTURE OF RIGHT ACETABULUM, INIT FOR CLOS FX (2) CAD (coronary artery disease) Current Visit: Yes Status: Acute Code(s): I25.10 - ATHSCL HEART DISEASE OF [place]ATIN[place] CORONARY ARTERY W/O ANG PCTRS (3) GERD (gastroesophageal reflux disease) Current Visit: Yes Status: Acute Code(s): K21.9 - GASTRO-ESOPHAGEAL REFLUX DISEASE WITHOUT ESOPHAGITIS (4) HTN (hypertension) Current Visit: No Status: Chronic Code(s): I10 - ESSENTIAL (PRIMARY) HYPERTENSION (5) Hyperlipidemia Current Visit: No Status: Chronic Code(s): E78.5 - HYPERLIPIDEMIA, UNSPECIFIED (6) History of fall Current Visit: Yes Status: Acute Code(s): Z91.81 - HISTORY OF FALLING (7) History of stroke Current Visit: Yes Status: Acute Code(s): Z86.73 - PRSNL HX OF TIA (TIA), AND CEREB INFRC W/O RESID DEFICITS (8) Smoker Current Visit: Yes Status: Acute Code(s): F17.200 - NICOTINE DEPENDENCE, UNSPECIFIED, UNCOMPLICATED (9) UTI (urinary tract infection) Current Visit: Yes Status: Acute Assessment & Plan: (1) Right acetabular fracture Current Visit: Yes Status: Acute Assessment & Plan: - CT scan of the right lower extremity revealed no fractures in the ankle or knee but noted a questionable lucency in the superior acetabular region, which may represent either a fracture or an osteophyte - Dr. Shelton contacted in ED - plan for MRI of the right hip/pelvis to evaluate for a possible occult acetabular fracture or osteophyte - Ortho consult - Pain management - patient with allergies to opiods - will continue tylenol, hot/cold therapy, topical lidocaine patches - Son would like pt to go to rehab - PT eval and treat - MRI negative Code(s): S32.401A - UNSP FRACTURE OF RIGHT ACETABULUM, INIT FOR CLOS FX (2) CAD (coronary artery disease) Current Visit: Yes Status: Acute Assessment & Plan: -Continue home meds Code(s): I25.10 - ATHSCL HEART DISEASE OF [place] CORONARY ARTERY W/O ANG PCTRS (3) GERD (gastroesophageal reflux disease) Current Visit: Yes Status: Acute Assessment & Plan: -Continue famotidine Code(s): K21.9 - GASTRO-ESOPHAGEAL REFLUX DISEASE WITHOUT ESOPHAGITIS (4) HTN (hypertension) Current Visit: No Status: Chronic Assessment & Plan: -Continue home meds Code(s): I10 - ESSENTIAL (PRIMARY) HYPERTENSION (5) Hyperlipidemia Current Visit: No Status: Chronic Assessment & Plan: -Continue home meds Code(s): E78.5 - HYPERLIPIDEMIA, UNSPECIFIED (6) History of fall Current Visit: Yes Status: Acute Assessment & Plan: -PT/OT eval Code(s): Z91.81 - HISTORY OF FALLING (7) History of stroke Current Visit: Yes Status: Acute Assessment & Plan: -continue ASA and plavix Code(s): Z86.73 - PRSNL HX OF TIA (TIA), AND CEREB INFRC W/O RESID DEFICITS (8) Smoker Current Visit: Yes Status: Acute Assessment & Plan: -Advised cessation - patient smokes about 1/2 ppd since she was 15 years old- not ready to quit -Will provide resources for smoking cessation -Nicotine patch Code(s): F17.200 - NICOTINE DEPENDENCE, UNSPECIFIED, UNCOMPLICATED (9) UTI (urinary tract infection) Current Visit: Yes Status: Acute Assessment & Plan: - UC gram negative, + ecoli- pansensitive - Ceftriaxone Code(s): N39.0 - URINARY TRACT INFECTION, SITE NOT SPECIFIED (10) Right ankle sprain Current Visit: Yes Status: Acute Assessment & Plan: - walking boot applied by ortho- wear for 2 weeks Code(s): S93.401A - SPRAIN OF UNSPECIFIED LIGAMENT OF RIGHT ANKLE, INIT ENCNTR - Discharge Discharge Date: 06/11/24 (Rehab) Disposition: XFER OTHER Condition: Stable Prescriptions: New Lidocaine HCl 5% Patch [Lidoderm Patch 5%] 1 patch TOP Q12H PRN PRN patch PRN Reason: Pain Acetaminophen 325 mg [Tylenol 325 mg] 1,000 mg PO Q6H PRN PRN tablet PRN Reason: Pain, Fever, Headache Continue Metoprolol Succinate 50 mg [Toprol Xl 50 MG] 25 mg PO DAILY Aspirin 81 gm Chew [Baby Aspirin 81 mg Chew] 81 mg PO DAILY Spironolactone 25 mg [Aldactone 25 MG] 25 mg PO DAILY Clopidogrel Bisulfate [PLAVIX Tablet] 75 mg PO DAILY Famotidine 20 mg [Pepcid 20 MG] 20 mg PO DAILY Follow up with: JOHN BRITT [Primary Care Provider, UNKNOWN] - 06/21/24 11:00 am
[2024-06-11 11:49] VITALS: BP 126/59; PULSE 72; TEMP 97.8; O2SAT 95
== END 2024-06-11 13:07 ==
LOC: ED 07:55 → MED SURG 12:42
PROVIDERS: ADMIT Internal Medicine; ATTEND Internal Medicine
DX: S32.401A Unspecified fracture of right acetabulum, initial encounter for closed fracture (principal); I25.10 Atherosclerotic heart disease of native coronary artery without angina pectoris; K21.9 Gastro-esophageal reflux disease without esophagitis; I10 Essential (primary) hypertension; E78.5 Hyperlipidemia, unspecified; Z91.81 History of falling; Z86.73 Personal history of transient ischemic attack (TIA), and cerebral infarction without residual deficits; F17.200 Nicotine dependence, unspecified, uncomplicated; N39.0 Urinary tract infection, site not specified; B96.20 Unspecified Escherichia coli [E. coli] as the cause of diseases classified elsewhere; S93.401A Sprain of unspecified ligament of right ankle, initial encounter; W19.XXXD Unspecified fall, subsequent encounter; Z79.899 Other long term (current) drug therapy; Z79.01 Long term (current) use of anticoagulants
CPT/HCPCS: 36415; 73700; 73721; 80053; 81001; 83036; 85025; 85027; 85610; 85730; 87077; 87086; 87186; 93005; 93268; 99285; G0378; J0696; Q3014; A9270-GY